=== PATIENT | female | born 1990 | race Caucasian/White ===

== ENCOUNTER 2020-05-16 10:59 | Emergency (ER) | payer BC, SELFPAY ==
[2020-05-16 12:01] LABS: Absolute Lymphocytes (CBC) 1.8 K/uL (0.7-4.9); Basophils % 0.6 % (0-1.3); Hematocrit 38.5 % (36.0-45.0); Lymphocytes % 30.2 % (15.3-44.8); MPV 8.8 fL (7.6-11.3); RBC Red Blood Cell Count 4.15 M/uL (3.86-4.86)
[2020-05-16 12:33] LABS: Urine Blood TRACE (NEG); Urine Glucose NEGATIVE (NEG); Urine Protein NEGATIVE (NEG); Urine pH 7.5 (5.0-7.0)
[2020-05-16 12:50] LABS: BUN Blood Urea Nitrogen 7 mg/dL (7-18); Bicarbonate 28 mmol/L (21-32); Glucose Level 104 mg/dL (74-106); HCG, Quantitative 41061 mIU/mL (1-3); Potassium 3.6 mmol/L (3.5-5.1); Sodium Level 138 mmol/L (136-145)
--- NOTE | 2020-05-16 14:38 | RAD REPORT ---
EXAM DESCRIPTION: US - Transvaginal OB - 05/16/2020 1:39 pm CLINICAL HISTORY: r/o Ectopic, pelvic pain, COMPARISON: No comparisons TECHNIQUE: Endovaginal sonography performed. FINDINGS: Normal size uterus seen with no myometrial mass. A normal shaped gestational sac seen in t he fundal portion of the endometrial cavity. Yolk sac is identified. pole is also present with crown-rump length corresponding to 6 week 3 day age. Heart rate is 130 BPM. No hematoma, mass or othe r intrauterine abnormality. The left ovary is well visualized and shows no abnormality. Normal flow seen in the stroma. No left a dnexal mass seen. No blood or fluid in the cul de sac. Right ovary is not clearly visualized due to bowel. No right adnexal mass. No finding to suspect conc urrent ectopic . IMPRESSION: Single 6 week 3 day IUP with a heart rate of 130 BPM. Calculated KEILA is 01/06/2021. No intrauterine mass or hematoma. No adnexal mass is identified.
[2020-05-16] MEDS ORDERED: AZITHROMYCIN 250 MG TAB ONE (14:40)
[2020-05-16] MEDS ORDERED: WATER FOR INJ,STERILE 10 ML ONE (14:40)
[2020-05-16] MEDS ORDERED: CEFTRIAXONE 1000 MG/VIAL ONE (14:40)
--- NOTE | 2020-05-16 15:46 | ER ---
Nurse's Notes [facility] Name: Ni Blanco Age: 29 yrs Sex: Female : 1990 Arrival Date: 05/16/2020 Time: 11:04 Bed 18 Private MD: Diagnosis: Bacterial Vaginosis Presentation: 05/16 11:06 Chief complaint: Patient states: "I went to an ER May 05 and my HCG was about 1999 aa5 but they couldn't see anything in the uterus". Pt c/o RLQ pain, yellowish vaginal discharge, and "rotten smell to my vagina". Pt also reports vaginal bleeding only on May 14 and none since then. 11:06 Coronavirus screen: Client denies travel out of the [place] in the last 14 days. At this aa5 time, the client does not indicate any symptoms associated with coronavirus-19. Ebola Screen: Patient negative for fever greater than or equal to 101.5 degrees Fahrenheit, and additional compatible Ebola Virus Disease symptoms. Initial Sepsis Screen: Does the patient meet any 2 criteria? No. Patient's initial sepsis screen is negative. Does the patient have a suspected source of infection? No. Patient's initial sepsis screen is negative. Risk Assessment: Do you want to hurt yourself or someone else? Patient reports no desire to harm self or others. Onset of symptoms was May 2020. 11:06 Acuity: LATRICE 3 aa5 11:06 Method Of Arrival: Ambulatory aa5 Historical: - Allergies: 11:18 No Known Allergies; aa5 - PMHx: 11:18 None; aa5 - PSHx: 11:18 None; aa5 - Immunization history:: Adult Immunizations up to date. - Social history:: Smoking status: Patient denies any tobacco usage or history of. Screenin:04 Abuse screen: Denies threats or abuse. Nutritional screening: No deficits noted. Tuberculosis screening: No symptoms or risk factors identified. Fall Risk None identified. Assessment: 11:30 General: Appears in no apparent distress. Behavior is calm, cooperative, appropriate for age. Neuro: Level of Consciousness is awake, alert, obeys commands, Oriented to person, place, time, situation, Appropriate for age. Cardiovascular: Capillary refill < 3 seconds Patient's skin is warm and dry. Respiratory: Airway is patent Respiratory effort is even, unlabored, Respiratory pattern is regular, symmetrical. GI: Bowel sounds present X 4 quads. : Reports discharge, malodorous, yellow, vaginal bleeding that is on May 14, none since. 12:30 Reassessment: Patient and/or family updated on plan of care and expected duration. Pain ah level reassessed. Patient is alert, oriented x 3, equal unlabored respirations, skin warm/dry/pink. No needs voiced at this time. 14:05 Reassessment: Provider in to do pelvic exam. Pt tolerated well. 14:40 Reassessment: Pt given antibiotics. Tolerated well. 15:24 Reassessment: Patient and/or family updated on plan of care and expected duration. Pain ah level reassessed. Patient is alert, oriented x 3, equal unlabored respirations, skin warm/dry/pink. awaiting on lab results. No needs voiced at this time. Vital Signs: 11:06 BP 121 / 73; Pulse 98; Resp 18 S; Temp 98.7(O); Pulse Ox 100% on R/A; Weight 54.43 kg aa5 (R); Height 5 ft. 7 in. (170.18 cm) (R); Pain 2/10; 13:00 BP 112 / 60; Pulse 82; Resp 16; Pulse Ox 99% ; ah 11:06 Body Mass Index 18.79 (54.43 kg, 170.18 cm) aa5 ED Course: 11:04 Patient arrived in ED. ag5 11:04 Arm band placed on Patient placed in an exam room, on a stretcher. aa5 11:08 Donta Kulkarni PA is PHCP. jr8 11:08 Farhan Robb MD is Attending Physician. jr8 11:08 Annie Vasquez, RN is Primary Nurse. 11:18 Triage completed. aa5 13:04 Patient has correct armband on for positive identification. Bed in low position. Call light in reach. Side rails up X 1. Pulse ox on. NIBP on. 14:10 Wet Prep Sent. ks7 14:10 GC (GONORR/CHLAMYDIA) Probe Sent. ks7 16:30 No provider procedures requiring assistance completed. IV discontinued, intact, bleeding controlled, No redness/swelling at site. Pressure dressing applied. Administered Medications: 14:41 Drug: Rocephin (cefTRIAXone) 250 mg Route: IM; Site: left ventrogluteal; 16:29 Follow up: Response: No adverse reaction 14:41 Drug: Zithromax 1 grams Route: PO; 16:29 Follow up: Response: No adverse reaction Outcome: 15:46 Discharge ordered by MD. byrd 16:29 Discharged to home ambulatory. 16:29 Condition: good 16:29 Discharge instructions given to patient, Instructed on discharge instructions, follow up and referral plans. Demonstrated understanding of instructions, follow-up care, medications, Prescriptions given X 1. 16:35 Patient left the ED. Signatures: Sofía Bush, RN RN aa5 Donta Kulkarni PA PA jr8 Monica Connell Amy RN RN Paula Goodrich RN RN ks7
--- NOTE | 2020-05-16 15:46 | EDPHYS ---
Physician Documentation [facility] Name: Ni Blanco Age: 29 yrs Sex: Female : 1990 Arrival Date: 05/16/2020 Time: 11:04 Bed 18 Private MD: ED Physician Farhan Robb HPI: 05/16 12:09 This 29 yrs old Female presents to ER via Ambulatory with complaints of jr8 Vaginal Bleeding, + Preg <12wks. 12:09 The patient presents to the emergency department with vaginal bleeding, that is light. jr8 Associated signs and symptoms: Pertinent positives: abdominal pain. The patient has not experienced similar symptoms in the past. The patient has been recently seen by a physician:. 12:10 Patient stated that she took test end of last month and was . Started jr8 to bleed and have lower abdominal pain. Went to [facility] and was given RhoGAM and had US completed. Stated that she was 5 weeks gestation but no identifiable IUP present. Stated that a couple of days later had heavy bleeding and now has stopped. Stated that he now continues to have foul smelling discharge and pain. Historical: - Allergies: 11:18 No Known Allergies; aa5 - PMHx: 11:18 None; aa5 - PSHx: 11:18 None; aa5 - Immunization history:: Adult Immunizations up to date. - Social history:: Smoking status: Patient denies any tobacco usage or history of. ROS: 12:10 Eyes: Negative for injury, pain, redness, and discharge, ENT: Negative for injury, jr8 pain, and discharge, Neck: Negative for injury, pain, and swelling, Cardiovascular: Negative for chest pain, palpitations, and edema, Respiratory: Negative for shortness of breath, cough, wheezing, and pleuritic chest pain, Abdomen/GI: Negative for abdominal pain, nausea, vomiting, diarrhea, and constipation, Back: Negative for injury and pain, MS/Extremity: Negative for injury and deformity, Skin: Negative for injury, rash, and discoloration, Neuro: Negative for headache, weakness, numbness, tingling, and seizure. 12:10 : Positive for pelvic pain, vaginal discharge, menstrual abnormality, missed period. Exam: 12:10 Eyes: Pupils equal round and reactive to light, extra-ocular motions intact. Lids and jr8 lashes normal. Conjunctiva and sclera are non-icteric and not injected. Cornea within normal limits. Periorbital areas with no swelling, redness, or edema. ENT: Nares patent. No nasal discharge, no septal abnormalities noted. Tympanic membranes are normal and external auditory canals are clear. Oropharynx with no redness, swelling, or masses, exudates, or evidence of obstruction, uvula midline. Mucous membranes moist. Neck: Trachea midline, no thyromegaly or masses palpated, and no cervical lymphadenopathy. Supple, full range of motion without nuchal rigidity, or vertebral point tenderness. No Meningismus. Cardiovascular: Regular rate and rhythm with a normal S1 and S2. No gallops, murmurs, or rubs. Normal PMI, no JVD. No pulse deficits. Respiratory: Lungs have equal breath sounds bilaterally, clear to auscultation and percussion. No rales, rhonchi or wheezes noted. No increased work of breathing, no retractions or nasal flaring. Abdomen/GI: Soft, non-tender, with normal bowel sounds. No distension or tympany. No guarding or rebound. No evidence of tenderness throughout. Back: No spinal tenderness. No costovertebral tenderness. Full range of motion. Skin: Warm, dry with normal turgor. Normal color with no rashes, no lesions, and no evidence of cellulitis. MS/ Extremity: Pulses equal, no cyanosis. Neurovascular intact. Full, normal range of motion. Neuro: Awake and alert, GCS 15, oriented to person, place, time, and situation. Cranial nerves II-XII grossly intact. Motor strength 5/5 in all extremities. Sensory grossly intact. Cerebellar exam normal. Normal gait. 15:45 : Pelvic Exam: External exam: is normal, Speculum exam: no cervicitis, os that is jr8 closed, no tissue in cervix is seen, discharge, malodorous, white. Vital Signs: 11:06 BP 121 / 73; Pulse 98; Resp 18 S; Temp 98.7(O); Pulse Ox 100% on R/A; Weight 54.43 kg aa5 (R); Height 5 ft. 7 in. (170.18 cm) (R); Pain 2/10; 13:00 BP 112 / 60; Pulse 82; Resp 16; Pulse Ox 99% ; ah 11:06 Body Mass Index 18.79 (54.43 kg, 170.18 cm) aa5 MDM: 11:15 Patient medically screened. [facility] 15:45 Data reviewed: vital signs, nurses notes, lab test result(s), radiologic studies, [facility] ultrasound. Data interpreted: Pulse oximetry: on room air is 99 %. Interpretation: normal. Counseling: I had a detailed discussion with the patient and/or guardian regarding: the historical points, exam findings, and any diagnostic results supporting the discharge/admit diagnosis, lab results, radiology results, the need for outpatient follow up, an OB/Gyne specialist, to return to the emergency department if symptoms worsen or persist or if there are any questions or concerns that arise at home. 05/16 11:26 Order name: Quantitative Hcg [facility] 05/16 11:26 Order name: Basic Metabolic Panel [facility] 05/16 11:26 Order name: CBC with Diff [facility] 05/16 12:22 Order name: Urine Dipstick--Ancillary (enter results) 05/16 12:22 Order name: Urine --Ancillary (enter results) 05/16 12:24 Order name: CBC with Automated Diff; Complete Time: 13:05 [facility] 05/16 12:33 Order name: Urine --Ancillary; Complete Time: 13:05 [facility] 05/16 12:33 Order name: Urine Dipstick-Ancillary; Complete Time: 13:05 [facility] 05/16 12:51 Order name: Basic Metabolic Panel; Complete Time: 13:05 [facility] 05/16 12:51 Order name: HCG, Quantitative; Complete Time: 13:05 [facility] 05/16 13:05 Order name: US Transvaginal Ob [facility] 05/16 13:40 Order name: GC (GONORR/CHLAMYDIA) Probe [facility] 05/16 13:40 Order name: Wet Prep [facility] 05/16 15:17 Order name: Wet Prep; Complete Time: 15:33 [facility] 05/16 11:26 Order name: Urine Test (obtain specimen); Complete Time: 12:53 [facility] 05/16 11:26 Order name: IV Saline Lock; Complete Time: 12:05 [facility] 05/16 11:26 Order name: Labs collected and sent; Complete Time: 12:05 [facility] 05/16 11:26 Order name: NPO; Complete Time: 12:05 [facility] 05/16 11:26 Order name: Urine Dipstick-Ancillary (obtain specimen); Complete Time: 12:52 [facility] 05/16 14:38 Order name: ; Complete Time: 14:42 EDMS Administered Medications: 14:41 Drug: Rocephin (cefTRIAXone) 250 mg Route: IM; Site: left ventrogluteal; 16:29 Follow up: Response: No adverse reaction 14:41 Drug: Zithromax 1 grams Route: PO; 16:29 Follow up: Response: No adverse reaction Disposition: 16:41 Co-signature as Attending Physician, Farhan Robb MD. rn Disposition: 05/16/20 15:46 Discharged to Home. Impression: Bacterial Vaginosis . - Condition is Stable. - Discharge Instructions: Bacterial Vaginosis. - Prescriptions for Flagyl 500 mg Oral Tablet - take 1 tablet by ORAL route every 12 hours for 7 days; 14 tablet. - Medication Reconciliation Form, Thank You Letter, Antibiotic Education, Prescription Opioid Use form. - Follow up: Private Physician; When: 2 - 3 days; Reason: Recheck today's complaints, Continuance of care, Re-evaluation by your physician. - Problem is new. - Symptoms have improved. Signatures: Dispatcher [employer] EDMS Farhan Robb MD MD rn Calderon, Audri, RN RN aa5 Donta Kulkarni PA PA 8 Annie Vasquez RN RN Corrections: (The following items were deleted from the chart) 16:35 15:46 05/16/2020 15:46 Discharged to Home. Impression: Bacterial Vaginosis . Condition ah is Stable. Forms are Medication Reconciliation Form, Thank You Letter, Antibiotic Education, Prescription Opioid Use. Follow up: Private Physician; When: 2 - 3 days; Reason: Recheck today's complaints, Continuance of care, Re-evaluation by your physician. Problem is new. Symptoms have improved. jr8
[2020-05-16 16:42] VITALS: TEMP 98.7
[2020-05-16 16:43] VITALS: BP 112/60; O2SAT 99
== END 2020-05-16 16:35 | disposition home or self-care (01) ==
LOC: ER 10:59
DX: O23.591 Infection of other part of genital tract in pregnancy, first trimester (principal); Z3A.01 Less than 8 weeks gestation of pregnancy
CPT/HCPCS: 36415; 76817; 80048; 81003; 81025; 84702; 85025; 87210; 87490; 87590; 96372; 99284

== ENCOUNTER 2023-03-26 16:48 | Emergency (ER) | payer OTHER ==
--- OUTSIDE RECORDS SUMMARY | 2023-03-26 16:52 | XMS REPORT | Continuity of Care Document ---
:1990 Author Organization [facility] t Address [address] [place] [address] Care Team Providers Name Role Phone Pcp, Patient Does Not Have A Primary Care Physician [phone] Maribeth Kelly MA Attending Clinician Unavailable Felicita Sloares Attending Clinician [phone] FELICITA WOODARD Attending Clinician Unavailable Provider, Crista Temnick Attending Clinician Unavailable Alysha Jones PA-C Attending Clinician Lilo Burnett Attending Clinician LILO MOHAN Attending Clinician Unavailable Lab, Crista Attending Clinician Unavailable Maurice Cardona Attending Clinician MAURICE GONZALEZ Attending Clinician Unavailable Doctor Unassigned, [place] Attending Clinician Unavailable ALYSHA JONES Attending Clinician Unavailable VINCENT HOWE Attending Clinician Unavailable Lew Trevizo MD Attending Clinician LEW TREVIZO Attending Clinician Unavailable Nurse, [facility] Attending Clinician Unavailable Vito Espinal DO Attending Clinician Kristal Rodriguez RN Attending Clinician Unavailable 2, [facility] Lab Attending Clinician Unavailable Ultrasound, Dayne Attending Clinician Unavailable Zuri Matias MD, Melendez Attending Clinician [phone] Ta PARISH, Laci Hopkins Attending Clinician Lori Enrique Us Room Attending Clinician Unavailable Lili Cook MD Attending Clinician Lab/Pedi, TashiRmchp Attending Clinician Unavailable Venkatesh Baker DO Attending Clinician Destiny Bond Attending Clinician DESTINY MORSE Attending Clinician Unavailable LEW TREVIZO Admitting Clinician Unavailable Lew Trevizo MD Admitting Clinician Payers Payer Name Policy Type Policy Number Effective Date Expiration Date Aaron soto [facility] [id number] 2020 CHOICE MEDICAID 00:00:00 MEDICAID PENDING PENDING 2020 00:00:00 Problems Condition Condition Condition Status Onset Resolution Last Treating Co mments Source Name Details Category Date Date Treatment Clinician Date Well woman Well woman Disease Active U nivers exam exam 5-04 ity of 00:00: [place] 00 Medical Branch Other Other Disease Active Univers depression depression 5-04 it y of 00:00: [place] 00 Medical Branch Elevated Elevated Disease Active Unive rs blood blood 5-04 ity of pressure pressure 00:00: [place] reading reading 00 Medical without without Branch diagnosis diagnosis of of hypertensi hypertensi on on IUD IUD Disease Active Univers (intrauter (intrauter 1-25 it y of ine ine 00:00: [place] device) in device) in [address] Branch Other Other Disease Active Univers general general 4-21 [place] of counseling [place] and advice 00 Me dical for for Branch contracept contracept trevor trevor management management Multiparit Multiparit Disease Active U nivers y y 8-11 ity of 00:00: [place] 00 Medical Branch Allergies, Adverse Reactions, Alerts Allergy Allergy Status Severity Reaction(s) Onset Inactive Treating Comm ents Source Name Type Date Date Clinician Adhesive Propensi Active Rash Univer s ty to 1-06 ity of adverse 00:00: [place] reaction 00 [facility] ADHESIVE Drug Active Rash 2018-0 Univers Class 1-06 ity of 00:00: [place] [facility] Adhesive Propensi Active Rash 2018- Univer s ty to -06 ity of adverse 00:00: [place] reaction [facility] Social History Social Habit Start Date Stop Date Quantity Comments Source History of tobacco 2020-03-20 Cigarette Smoker University of use 00:00:00 [facility] Alcohol intake 2022-04-21 2022-04-21 Current University of 00:00:00 00:00:00 non-drinker of [facility] alcohol Branch (finding) Exposure to 2022-04-10 2022-04-20 Not sure University SARS-CoV-2 (event) 00:00:00 15:51:00 [facility] Cigarettes smoked 2022-04-20 2022-04-20 Univers ity of current (pack per 00:00:00 00:00:00 [facility] ) - Reported Branch Cigarette 2022-04-20 2022-04-20 University of pack-years 00:00:00 00:00:00 [facility] Tobacco use and 2022-04-20 2022-04-20 Smokeless Universit y of exposure 00:00:00 00:00:00 tobacco non-user [facility] Sex Assigned At [birth year] Universit y of 00:00:00 00:00:00 [facility] Smoking Status Start Date Stop Date Source Ex-smoker 2022-04-20 00:00:00 2022-04-20 00:00:00 Universi ty of [facility] Medications Ordered Filled Start Stop Current Ordering Indication Dosage Frequency Signature Comments Components Source Medication Medication Date Date Medication? Clinician (SIG) Name Name No known No No known Unive rs medications 04-21 medication it y of 10:35: s [address] No known No No known Unive rs medications 04-21 medication it y of 10:35: s [address] No known No No known Unive rs medications 04-21 medication it y of 10:35: s [address] metroNIDAZO 2021- No [id number] 500mg Take 1 Univers LE 500 mg 04-21 tablet by ity of tablet 00:00: 04:59 mouth [place] 00 :00 every 12 Medical (twelve) Branch hours for 7 days. metroNIDAZO 2021- No [id number] 500mg Take 1 Univers LE 500 mg 02-11 tablet by ity of tablet 00:00: 00:00 mouth 2 [place] 00 :00 (two) Medical times Branch daily. SERTraline 2021- No [id number] 25mg Take 1 Univers (ZOLOFT) 25 03-10 tablet by it y of mg tablet 00:00: 00:00 mouth [place] 00 :00 daily. [facility] Branch Immunizations Ordered Filled Immunization Date Status Comments [facility] e Immunization Name Name Rho (d) Immune 2020-12-25 Completed University of Globulin 00:00:00 [facility] Rho (d) Immune 2020-12-25 Completed University of Globulin 00:00:00 [facility] Rho (d) Immune 2020-12-25 Completed University of Globulin 00:00:00 [facility] Rho (d) Immune 2020-12-25 Completed University of Globulin 00:00:00 [facility] Rho (d) Immune 2020-12-25 Completed University of Globulin 00:00:00 [facility] Rho (d) Immune 2020-12-25 Completed University of Globulin 00:00:00 [facility] Rho (d) Immune 2020-10-08 Completed University of Globulin 00:00:00 [facility] TDAP 2020-10-08 Completed University of 00:00:00 [facility] Rho (d) Immune 2020-10-08 Completed University of Globulin 00:00:00 [facility] TDAP 2020-10-08 Completed University of 00:00:00 [facility] Rho (d) Immune 2020-10-08 Completed University of Globulin 00:00:00 [facility] TDAP 2020-10-08 Completed University of 00:00:00 [facility] Rho (d) Immune 2020-10-08 Completed University of Globulin 00:00:00 [facility] TDAP 2020-10-08 Completed University of 00:00:00 [facility] Rho (d) Immune 2020-10-08 Completed University of Globulin 00:00:00 [facility] TDAP 2020-10-08 Completed University of 00:00:00 [place] [facility] Rho (d) Immune 2020-10-08 Completed University of Globulin 00:00:00 [facility] TDAP 2020-10-08 Completed University of 00:00:00 [facility] Influenza Virus 2020-09-10 Completed Universit y of Vaccine Quad .5 mL 00:00:00 [place] [facility] 6+ MO Branch Influenza Virus 2020-09-10 Completed Universit y of Vaccine [place] .5 mL 00:00:00 [place] [facility] 6+ MO Branch Influenza Virus 2020-09-10 Completed Universit y of Vaccine [place] .5 mL 00:00:00 [place] [facility] 6+ MO Branch Influenza Virus 2020-09-10 Completed Universit y of Vaccine [place] .5 mL 00:00:00 [place] [facility] 6+ MO Branch Influenza Virus 2020-09-10 Completed Universit y of Vaccine [place] .5 mL 00:00:00 [facility] IM 6+ MO Branch Influenza Virus 2020-09-10 Completed Universit y of Vaccine Quad .5 mL 00:00:00 [facility] 6+ MO Branch Rho (d) Immune 2020-05-05 Completed University of Globulin 00:00:00 [facility] Rho (d) Immune 2020-05-05 Completed University of Globulin 00:00:00 [facility] Rho (d) Immune 2020-05-05 Completed University of Globulin 00:00:00 [facility] Rho (d) Immune 2020-05-05 Completed University of Globulin 00:00:00 [facility] Rho (d) Immune 2020-05-05 Completed University of Globulin 00:00:00 [facility] Rho (d) Immune 2020-05-05 Completed University of Globulin 00:00:00 [facility] PPD (TB) 2015-11-06 Completed University of 00:00:00 [facility] PPD (TB) 2015-11-06 Completed University of 00:00:00 [facility] PPD (TB) 2015-11-06 Completed University of 00:00:00 [facility] PPD (TB) 2015-11-06 Completed University of 00:00:00 [facility] PPD (TB) 2015-11-06 Completed University of 00:00:00 [facility] PPD (TB) 2015-11-06 Completed University of 00:00:00 [facility] Td 2006-11-06 Completed University of 00:00:00 [facility] Td 2006-11-06 Completed University of 00:00:00 [facility] Td 2006-11-06 Completed University of 00:00:00 [facility] Td 2006-11-06 Completed University 00:00:00 [facility] Td 2006-11-06 Completed University 00:00:00 [facility] TD, NOS 2006-11-06 Completed University 00:00:00 [facility] Vital Signs Vital Name Observation Time Observation Value Comments Source Systolic blood 2022-04-20 20:52:00 111 mm[Hg] Univer sity of pressure [facility] Diastolic blood 2022-04-20 20:52:00 74 mm[Hg] Unive rsity of pressure [facility] Heart rate 2022-04-20 20:52:00 93 /min [facility] Body temperature 2022-04-20 20:52:00 36.78 Shruti [facility] Res[facility] rate 2022-04-20 20:52:00 16 /min [facility] Body height 2022-04-20 20:52:00 170.2 cm [facility] Body weight 2022-04-20 20:52:00 58.695 kg [facility] BMI 2022-04-20 20:52:00 20.27 kg/m2 [facility] Procedures This patient has no known procedures. Encounters Start End Encounter Admission Attending Care Care Encounter Source Date/Time Date/Time Type Type Clinicians Facility Department ID 2021-08-08 Outpatient P [facility] APRIL [id number] Univers 06:28:29 ity of [facility] 2021-08-06 Emergency [facility] [id number] Univers 09:16:09 ity of [facility] 2023-02-02 2023-02-02 Case KIMANI Kelly [id number] Univers 00:00:00 00:00:00 Management Maribeth ORDOÑEZ [id number] ity of [place] [id number] Maximilian red [phone] [place] [address] Branch 2022-05-20 2022-05-20 [facility] [id number] Univers 00:00:00 00:00:00 Felicita Bello MANAGER TECHNOLOGY [id number] ity of REGIONAL [id number] Govind as MATERNAL [phone] [facility] & CHILD [address] [place] [address] 2022-05-19 2022-05-19 Outpatient R RIVER [facility] [id number] Univers 14:30:00 14:30:00 FELICITA nehemiah paulino alexander [facility] 2022-05-19 2022-05-19 Outpatient R RIVER [facility] [id number] Univers 10:15:00 10:15:00 FELICITA nehemiah paulino alexander [facility] 2022-05-18 2022-05-18 Telephone Provider, [facility] [id number] Univers 00:00:00 00:00:00 JuanitaUnited Health Servicesnick MANAGER TECHNOLOGY [id number] ity [facility] [id number] Govind as MATERNAL [phone] [facility] & CHILD [address] [place] [address] 2022-05-04 2022-05-04 [facility] [id number] Univers 00:00:00 00:00:00 Alysha [place] [id number] i ty [facility] [id number] PROFESS[place] [phone] Hi dical [address] 2022-04-21 2022-04-21 Case Joes [facility] [id number] Univers 00:00:00 00:00:00 Management Lilo Nichole MANAGER TECHNOLOGY [id number] [facility] [id number] Govind as MATERNAL [phone] [facility] ical & CHILD [address] [facility] 2022-04-20 2022-04-20 Outpatient R LILO MOHAN [facility] [id number] Univers 15:00:00 16:30:02 [facility] 2022-04-20 2022-04-20 Office Provider, Crista [facility] 1 .[id number] Univers 15:00:00 16:30:02 Visit Lilo Mohan MANAGER TECHNOLOGY [id number] ity of REGIONAL [id number] Govind as MATERNAL [phone] [facility] & CHILD [address] [place] [address] 2022-03-02 2022-03-02 Outpatient R AKINSIPE, [facility] [id number] Univers 15:00:00 15:00:00 FELICITA ity o f [facility] 2022-03-02 2022-03-02 Outpatient R AKINSIPE, [facility] [id number] Univers 15:00:00 15:00:00 FELICITA ity o f [facility] 2022-03-02 2022-03-02 Outpatient R AKINSIPE, [facility] [id number] Univers 15:00:00 15:00:00 FELICITA ity o [facility] 2022-02-11 2022-02-11 [facility] 1.2.840.114 [id number] Univers 00:00:00 00:00:00 Felicita C MANAGER TECHNOLOGY [id number] ity of [facility] [id number] Govind as MATERNAL [phone] [facility] CHILD [address] [place] [address] 2022-02-09 2022-02-09 Office [facility] [id number] Univers 09:30:00 10:12:31 Visit Felicita C MANAGER TECHNOLOGY [id number] ity of [facility] [id number] Govind as MATERNAL [phone] [facility] CHILD [address] [place] [address] 2022-02-09 2022-02-09 Outpatient R AKINSIPE, [facility] [id number] Univers 09:30:00 10:12:31 FELICITA ity o [facility] 2022-02-09 2022-02-09 Outpatient R AKINSIPE, [facility] [id number] Univers 09:30:00 09:30:00 FELICITA ity o f [facility] 2022-02-09 2022-02-09 Outpatient R AKINSIPE, [facility] [id number] Univers 09:30:00 09:30:00 FELICITA ity o f [facility] 2022-02-08 2022-02-08 Telephone [facility] 1.2.840.114 [id number] Univers 00:00:00 00:00:00 Felicita Bello MANAGER TECHNOLOGY [id number] ity of [facility] [id number] Govind as MATERNAL [phone] [facility] CHILD [address] [place] [address] 2022-02-03 2022-02-03 Private Investigator Surveillance Lab, [facility] 1.2.840. 114 [id number] Univers 13:30:00 13:45:00 Visit Maurice Gonzalez MANAGER TECHNOLOGY [id number] ity of [facility] [id number] Govind as MATERNAL [phone] [facility] & CHILD [address] [place] [address] 2022-02-03 2022-02-03 [facility] [id number] Univers 13:30:00 13:30:00 MAURICE cerna o alexander [facility] 2022-02-03 2022-02-03 Telephone [facility] 1.2.840.114 [id number] Univers 00:00:00 00:00:00 Felicita Bello MANAGER TECHNOLOGY 350.1.13.10 ity of [facility] 4.2.7.2.686 Govind as MATERNAL [phone] [facility] & CHILD [address] [place] [address] 2022-02-01 2022-02-01 [facility] [id number] Univers 08:00:00 08:15:56 MAURICE cerna o alexander [facility] 2022-02-01 2022-02-01 Office [facility] 1.2.840.114 [id number] Univers 08:00:00 08:15:56 Visit Maurice Aldana MANAGER TECHNOLOGY [id number] ity of [facility] [id number] Govind as MATERNAL [phone] [facility] CHILD [address] [place] [address] 2022-02-01 2022-02-01 Orders Doctor CARRILLO 1.2.840.114 [id number] Univers 00:00:00 00:00:00 Only Unassigned, NICO 350.1.13.10 ity of [place] [facility] 4.2.7.2.686 Govind as [phone] [address] 2022-01-28 2022-01-28 Telephone [facility] 1.2.840.114 [id number] Univers 00:00:00 00:00:00 Felicita C MANAGER TECHNOLOGY 350.1.13.10 ity of [facility] [id number] Govind as MATERNAL [phone] [facility] & CHILD [address] [place] [address] 2021-11-04 2021-11-04 Outpatient R ROBERT [facility] [id number] Univers 16:00:00 16:00:00 ALYSHA [facility] 2021-11-03 2021-11-03 Telephone [facility] 1.2.840.114 [id number] Univers 00:00:00 00:00:00 Felicita C MANAGER TECHNOLOGY 350.1.13.10 ity of [facility] 4.2.7.2.686 Govind as MATERNAL [phone] [facility] CHILD [address] [place] [address] 2021-11-03 2021-11-03 Telephone [facility] 1.2.840.114 [id number] Univers 00:00:00 00:00:00 Felicita C MANAGER TECHNOLOGY 350.1.13.10 ity of [facility] [id number] Govind as MATERNAL [phone] [address] 2021-11-02 2021-11-02 Office [facility] [id number] Univers 14:15:00 14:30:00 Visit Felicita C MANAGER TECHNOLOGY 350.1.13.10 ity of [facility] 4.2.7.2.686 Govind as MATERNAL [phone] [address] 2021-11-02 2021-11-02 Outpatient R RIVER [facility] [id number] Univers 14:15:00 14:15:00 FELICITA cerna o f [facility] 2021-07-22 2021-07-22 Outpatient R ROBERT [facility] [id number] Univers 13:00:00 13:00:00 ALYSHA [facility] 2021-03-31 2021-03-31 Outpatient R SHYAM [facility] [id number] Univers 09:00:00 09:00:00 VINCENT [facility] 2021-03-10 2021-03-10 Outpatient R ROBERT [facility] [id number] Univers 13:15:00 13:15:00 ALYSHA [facility] 2021-03-10 2021-03-10 Telemedicsalome [facility] 1.2.840.114 [id number] Univers 09:34:52 10:04:52 ne Visit Alysha Marcus 350.1.13.10 ity of [place].2.[place] Profess[place] [phone] Hi dic[address] 2021-02-24 2021-02-24 Office Lew Trevizo [facility] [id number] Univers 09:07:01 09:43:41 Visit Naveen Marcus 350.1.13.10 i ty of [place]2.7.2.[place] Profess[place] [phone] [address] 2021-02-24 2021-02-24 Outpatient R LEW TREVIZO [facility] [id number] Univers 09:30:00 09:30:00 [facility] 2021-02-11 2021-02-11 Outpatient R ROBERT [facility] [id number] Univers 15:45:00 15:45:00 ALYSHA [facility] 2021-02-10 2021-02-10 Outpatient R ROBERT [facility] [id number] Univers 16:00:00 16:00:00 ALYSHA [facility] 2021-02-10 2021-02-10 [facility]tiaz [facility] 1.2.840.114 [id number] Univers 15:12:21 15:39:53 ne Visit Alysha Marcus 350.1.13.10 ity of [place] 4[place]2.7.2.[place] [phone] Hi dical [address] 2021-02-10 2021-02-10 Telephone Lew Trevizo [facility] 1.2.840.114 [id number] Univers 00:00:00 00:00:00 Naveen Marcus 350.1.13.10 i ty of [place] 4[place].2.[place] [phone] Hi dical [address] 2021-01-27 2021-01-27 Office Lew Trevizo [facility] [id number] Univers 09:00:09 09:46:10 Visit Naveen Marcus 350.1.13.10 i ty of [place] 4[place]2.7.2.686 [place] [phone] Hi dic[address] 2021-01-27 2021-01-27 Outpatient R LEW TREVIZO [facility] [id number] Univers 09:00:00 09:00:00 ity of [facility] 2021-01-27 2021-01-27 Orders Doctor LORENA 1.2.840.114 [id number] Univers 00:00:00 00:00:00 Only Unassigned, NICO 350.1.13.10 ity of [place] [facility] 4.2.7.2.686 Govind as [phone] [address] 2021-01-20 2021-01-20 Routine Robert [facility] [id number] Univers 10:00:23 10:15:23 Alysha Marcus 350.1.13.10 ity of [place] 4[place].2.[place] [phone] [address] 2021-01-20 2021-01-20 Outpatient R ROBERT [facility] [id number] Univers 09:45:00 09:45:00 ALYSHA [facility] 2020-12-30 2020-12-30 Nurse Nurse, [facility] 1.2.840.114 [id number] Univers 09:59:08 10:15:49 Visit Lew Trevizo 350.1.13.10 ity [place]2.[place] [phone] [facility] [address] [facility] 2020-12-30 2020-12-30 Outpatient R LEW TREVIZO [facility] [id number] Univers 10:00:00 10:00:00 ity of [facility] 2020-12-29 2020-12-29 Patient Teddy [facility] 1.2.840.114 [id number] Univers 00:00:00 00:00:00 Outreach Vito PRIMARY 350.1.13.10 i ty of [facility] 4.2.7.2.686 [place] [id number] [facility] [address] 2020-12-22 2020-12-27 Hospital Lew Trevizo [facility] 1.2.840.114 [id number] Univers 16:53:00 10:20:00 Encounter Naveen Marcus 350.1.13.10 ity of [place].2.686 [place] [phone] [facility] [address] 2020-12-22 2020-12-22 Routine Pierre [facility] [id number] Univers 15:59:10 17:30:07 Naveen [place] 350.1.13.10 ity of [place] 4[place].2.[place] [phone] Hi dicpa nal [address] [facility] 2020-12-22 2020-12-22 Outpatient R LEW TREVIZO [facility] [id number] Univers 16:00:00 16:00:00 ity of [facility] 2020-12-21 2020-12-21 Telephone Pierre [facility] 1.2.840.114 [id number] Univers 00:00:00 00:00:00 Cam Amrit 350.1.13.10 i ty [place] 4[place]2.7.2.[place] [phone] Hi dicpa nal [address] [facility] 2020-12-19 2020-12-19 Nurse LORENA Rodriguez 1.2.840.114 [id number] [facility] Univers 00:00:00 00:00:00 Triage Kristal BRANY 350.1.13.10 it y of [facility] 4.2.7.2.686 Govind as [phone] [address] 2020-12-15 2020-12-15 Routine Lew Trevizo [facility] [id number] Univers 14:44:49 15:28:42 Naveen Marcus 350.1.13.10 ity of [place] 4.2.7.2.[place] [phone] Hi dical nal [address] [facility] 2020-12-15 2020-12-15 Outpatient R LEW TREVIZO [facility] [id number] Univers 14:45:00 14:45:00 ity of [facility] 2020-12-09 2020-12-09 Routine Alysha Jones [facility] 1.2.840.11 [id number] Univers 15:41:25 16:27:33 Lew Trevizo Naveen Marcus 350.1.13.10 ity of [place] [phone] Hi dical nal [address] [place] [address] 2020-12-09 2020-12-09 Outpatient R LEW TREVIZO [facility] [id number] Univers 15:45:00 15:45:00 ity of [facility] 2020-12-01 2020-12-01 Private Investigator Surveillance 2, [facility] Lab [facility] 1.2.840.114 [id number] Univers 12:11:58 12:26:58 Visit Alysha Jones 350.1.13.10 [place] [phone] Hi dical nal 353 [facility] 2020-12-01 2020-12-01 Routine Robert [facility] 1.2.524.264 [id number] Univers 11:09:00 11:55:27 Alysha Marcus 350.1.13.10 it[place] [phone] Hi dical nal 134 [facility] 2020-12-01 2020-12-01 Outpatient R ROBERT [facility] [id number] Univers 11:15:00 11:15:00 ALYSHA [facility] 2020-12-01 2020-12-01 Orders Doctor LORENA 1.2.840.114 [id number] Univers 00:00:00 00:00:00 Only Unassigned, NICO 350.1.13.10 ity of [place] [facility] 4.2.7.2.686 Govind as [phone] [address] 2020-11-17 2020-11-17 Outpatient R LEW TREVIZO [facility] [id number] Univers 09:45:00 09:45:00 ity of [facility] 2020-11-11 2020-11-11 Abstract River [facility] 1.2.840.114 [id number] Univers 00:00:00 00:00:00 Felicita Bello MANAGER TECHNOLOGY 350.1.13.10 ity of [facility] 4.2.7.2.686 Govind as MATERNAL [phone] Med ical & CHILD 107 [facility] 2020-11-10 2020-11-10 Private Investigator Surveillance Ultrasound, [facility] 1.2 .840.114 [id number] Univers 12:57:27 13:27:27 Visit Nora Julian MANAGER TECHNOLOGY 350.1. 13.10 ity of [facility] 4.2.7.2.686 Govind as MATERNAL [phone] Med ical & CHILD 369 [facility] 2020-11-10 2020-11-10 Outpatient P [facility] [id number] Univers 13:00:00 13:00:00 ity of [facility] 2020-11-05 2020-11-05 Routine Robert [facility] 1.2.839.625 [id number] Univers 11:04:11 11:19:11 Alysha [place] 350.1.13.10 ity of [place] [phone] Hi dical nal 134 [facility] 2020-11-05 2020-11-05 [facility] [id number] Univers 11:15:00 11:15:00 ALYSHA [facility] 2020-10-30 2020-10-30 Private Investigator Surveillance 2, Adc Lab [facility] 1.2.840.114 [id number] Univers 08:38:19 08:53:19 Visit TishRuben moralespop Marcus 350.1.13 .10 it[place] of [place] [phone] Hi dical nal 353 [facility] 2020-10-30 2020-10-30 Outpatient R [facility] [id number] Univers 08:30:00 08:30:00 FELICITA ity o f [facility] 2020-10-22 2020-10-22 Routine Trevizo [facility] 1.2.081.503 [id number] Univers 12:55:10 13:35:14 Cam Amrit 350.1.13.10 ity of [place] [phone] Hi dical [address] 2020-10-22 2020-10-22 Outpatient R LEW TREVIZO [facility] [id number] Univers 13:00:00 13:00:00 [facility] 2020-10-08 2020-10-08 [facility] 1.2.146.367 [id number] Univers 13:24:07 14:15:33 Alysha Marcus 350.1.13.10 ity of [place] [phone] Hi dic[address] 2020-10-08 2020-10-08 [facility] [id number] Univers 13:30:00 13:30:00 ALYSHA [facility] 2020-10-06 2020-10-06 Private Investigator Surveillance 2, Adc Lab [facility] 1.2.840.114 [id number] Univers 13:06:24 13:21:24 Visit Alysha Jones 350.1.13.10 ity of [place] [phone] Hi dical nal 353 [facility] 2020-10-06 2020-10-06 Outpatient R [facility] [id number] Univers 13:00:00 13:00:00 ity of [facility] 2020-10-06 2020-10-06 Telephone [facility] 1.2.840.114 [id number] Univers 00:00:00 00:00:00 Felicita C MANAGER TECHNOLOGY 350.1.13.10 ity of REGIONAL 4.2.7.2.686 Govind as MATERNAL [phone] Med ical & CHILD [address] [place] [address] 2020-09-29 2020-09-29 Outpatient [facility] [id number] Univers 13:15:00 13:15:00 FELICITA ity o f [facility] 2020-09-17 2020-09-17 Telephone Pierre [facility] 1.2.840.114 [id number] Univers 00:00:00 00:00:00 Cam [place] 350.1.13.10 i ty of [place] [phone] Hi dical nal 134 [facility] 2020-09-10 2020-09-10 Initial Pierre [facility] 1.2.997.727 [id number] Univers 09:47:46 11:32:34 Cam [place] 350.1.13.10 ity of [place]2.[place] [phone] Hi dical nal 134 [facility] 2020-09-10 2020-09-10 Outpatient R TREVIZOLEW [facility] [id number] Univers 10:00:00 10:00:00 ity of [facility] 2020-09-01 2020-09-01 Routine [facility] [id number] Univers 14:04:31 14:47:06 Felicita C MANAGER TECHNOLOGY 350.1.13.10 ity of Visit [facility] 4.2.7.2.686 Govind as MATERNAL [phone] [facility] & CHILD [address] [place] [address] 2020-09-01 2020-09-01 Outpatient R AKINRENATO, [facility] [id number] Univers 14:00:00 14:00:00 FELICITA ity o f [facility] 2020-08-18 2020-08-18 Private Investigator Surveillance Ultrasound, Dayne [facility] 1.2 .840.114 [id number] Univers 12:55:14 13:55:14 Visit Laci Chappell MANAGER TECHNOLOGY 350.1.13.10 ity of REGIONAL 4.2.7.2.686 [place] as MATERNAL [phone] [facility] ical & CHILD [address] [place] [address] 2020-08-18 2020-08-18 Outpatient P [facility] [id number] Univers 13:00:00 13:00:00 ity of [facility] 2020-08-18 2020-08-18 [facility] 1.2.840.114 [id number] Univers 00:00:00 00:00:00 Felicita C MANAGER TECHNOLOGY 350.1.13.10 ity of REGIONAL 4.2.7.2.686 Govind as MATERNAL [phone] [facility] ical & CHILD [address] [place] [address] 2020-08-04 2020-08-04 Routine Akinsipe, [facility] 1.2.681.642 [id number] Univers 15:09:07 15:54:03 Felicita C MANAGER TECHNOLOGY 350.1.13.10 ity of Visit [place]IONAL 4.2.7.2.686 Govind as MATERNAL [phone] [facility] & CHILD [address] [place] [address] 2020-08-04 2020-08-04 Outpatient R AKINROSSANAPE, [facility] [id number] Univers 15:15:00 15:15:00 FELICITA ity o f [facility] 2020-07-15 2020-07-15 Outpatient R AKINSIPE, [facility] [id number] Univers 11:00:00 11:00:00 FELICITA ity o f [facility] 2020-07-14 2020-07-14 Routine Akinsipe, [facility] [id number] Univers 15:51:29 16:22:26 Felicita C MANAGER TECHNOLOGY 350.1.13.10 ity of Visit [place]IONAL 4.2.7.2.686 Govind as MATERNAL [phone] Med ical & CHILD 107 [facility] 2020-07-14 2020-07-14 Outpatient R AKINSIPE, [facility] [id number] Univers 16:00:00 16:00:00 FELICITA nehemiah lora hopkins [facility] 2020-07-14 2020-07-14 Outpatient R AKINSIPE, [facility] [id number] Univers 14:00:00 14:00:00 FELICITA cerna o f [facility] 2020-06-23 2020-06-23 [facility] 1.2.840.114 [id number] Univers 00:00:00 00:00:00 Felicita C MANAGER TECHNOLOGY 350.1.13.10 ity of [facility] 4.2.7.2.686 Govind as MATERNAL [phone] Med ical & CHILD [address] [place] [address] 2020-06-22 2020-06-22 Private Investigator Surveillance [facility] Room [facility] 1.2. 840.114 [id number] Univers 10:09:58 10:54:58 Visit Lili Cook MANAGER TECHNOLOGY 350.1.13.10 ity of REGIONAL 4.2.7.2.686 Govind as MATERNAL [phone] Med ical & CHILD 369 [facility] 2020-06-22 2020-06-22 Private Investigator Surveillance [facility] 1.2 .840.114 [id number] Univers 10:47:30 10:47:50 Visit Lili Cook MANAGER TECHNOLOGY 350.1.13.10 ity of REGIONAL 4.2.7.2.686 Govind as MATERNAL [phone] [facility] ical & CHILD 125 [facility] 2020-06-22 2020-06-22 Outpatient P [facility] [id number] Univers 10:00:00 10:00:00 ity of [facility] 2020-06-16 2020-06-16 Routine [facility] 1.2.816.597 [id number] Univers 12:46:05 13:28:32 Felicita C MANAGER TECHNOLOGY 350.1.13.10 ity of Visit REGIONAL 4.2.7.2.686 Govind as MATERNAL [phone] Med ical & CHILD [address] [place] [address] 2020-06-16 2020-06-16 Outpatient R AKINSIPE, [facility] [id number] Univers 12:45:00 12:45:00 FELICITA ity o f [facility] 2020-06-16 2020-06-16 Outpatient R AKINSIPE, [facility] [id number] Univers 12:45:00 12:45:00 FELICITA ity o f [facility] 2020-05-28 2020-05-28 Telephone [facility] 1.2.840.114 [id number] Univers 00:00:00 00:00:00 Felicita C MANAGER TECHNOLOGY 350.1.13.10 ity of REGIONAL 4.2.7.2.686 Govind as MATERNAL [phone] [facility] & [address] 2020-05-19 2020-05-26 Initial [facility] 1.2.914.999 [id number] Univers 08:35:51 08:20:14 Felicita C MANAGER TECHNOLOGY 350.1.13.10 ity of Visit REGIONAL 4.2.7.2.686 Govnid as MATERNAL [phone] [facility] & CHILD [address] [place] [address] 2020-05-19 2020-05-19 Outpatient R AKINSIPE, [facility] [id number] Univers 08:00:00 08:00:00 FELICITA ity o f [facility] 2020-05-19 2020-05-19 Orders Doctor LORENA 1.2.840.114 [id number] Univers 00:00:00 00:00:00 Only Unassigned, NICO 350.1.13.10 ity of [place] [facility] 4.2.7.2.686 Govind as [phone] [address] 2020-05-15 2020-05-15 Telephone [facility] 1.2.840.114 [id number] Univers 00:00:00 00:00:00 Felicita C MANAGER TECHNOLOGY 350.1.13.10 ity of REGIONAL 4.2.7.2.686 Govind as MATERNAL [phone] [facility] & CHILD [address] [place] [address] 2020-05-05 2020-05-05 Emergency [facility] 1.2.046.782 [id number] Univers 10:46:02 15:12:00 Venkatesh Marcus 350.1.13.10 i ty [facility] 4.2.7.2.686 [place] [facility] [phone] [facility] [address] [place] 2020-04-30 2020-04-30 Outpatient R LISA [facility] [id number] Univers 09:00:00 09:00:00 MAURICE hopkins [facility] 2020-03-31 2020-03-31 Orders Doctor LORENA 1.2.840.114 [id number] Univers 00:00:00 00:00:00 Only Unassigned, NICO 350.1.13.10 ity of [place] [facility] 4.2.7.2.686 Govidn as [phone] [address] 2020-03-26 2020-03-26 Orders Doctor CARRILLO 1.2.840.114 [id number] Univers 00:00:00 00:00:00 Only Unassigned, NICO 350.1.13.10 ity of [place] [facility] 4.2.7.2.686 Govind as [phone] [address] 2020-03-20 2020-03-20 Office Provider, Crista Walsh [facility] 1 .2.840.114 [id number] Univers 14:20:05 14:56:27 Visit Destiny Morse MANAGER TECHNOLOGY 350.1.13.10 ity of [facility] 4.2.7.2.686 Govind as MATERNAL [phone] Med ical & CHILD [address] [place] [address] 2020-03-20 2020-03-20 Outpatient R [facility] [id number] Univers 14:00:00 14:00:00 ity of [facility] 2020-03-20 2020-03-20 Outpatient R AVTAR [facility] [id number] Univers 14:00:00 14:00:00 DESTINY hopkins [facility] 2020-03-20 2020-03-20 Orders Doctor CARRILLO 1.2.840.114 [id number] Univers 00:00:00 00:00:00 Only Unassigned, NICO 350.1.13.10 ity of [place] [facility] 4.2.7.2.686 Govind as [phone] [address] 2020-03-13 2020-03-13 Telephone Provider, [facility] 1.2.840.114 [id number] Univers 00:00:00 00:00:00 [facility] MANAGER TECHNOLOGY 350.1.13.10 ity of [facility] 4.2.7.2.686 Govind as MATERNAL [phone] [facility] ical & CHILD [address] [place] [address] 2020-03-11 2020-03-11 Office [facility] 1 .2.840.114 [id number] Univers 14:27:49 14:57:49 Visit Destiny Morse MANAGER TECHNOLOGY 350.1.13.10 ity of [facility] 4.2.7.2.686 Govind as MATERNAL [phone] [facility] & CHILD [address] [place] [address] 2020-03-11 2020-03-11 Outpatient R AVTAR [facility] [id number] Univers 14:30:00 14:30:00 DESTINY hopkins [facility] 2020-03-11 2020-03-11 Orders Doctor LORENA 1.2.840.114 [id number] Univers 00:00:00 00:00:00 Only Unassigned, NICO 350.1.13.10 ity of [place] [facility] 4.2.7.2.686 Govind as [phone] [address] Results This patient has no known results.
--- NOTE | 2023-03-26 18:16 | RAD REPORT ---
EXAM DESCRIPTION: RAD - Ankle Left 3 View - 03/26/2023 5:54 pm CLINICAL HISTORY: PAIN COMPARISON: No comparisons TECHNIQUE: Left ankle, 3 views. FINDINGS: Mildly displaced fracture at the tip of the lateral malleolus. Overlying soft tissue swell ing. No dislocation or periosteal reaction. No joint effusion seen. No joint space narrowing. No othe r soft tissue abnormality. IMPRESSION: Mildly displaced fracture at the tip of the lateral malleolus.
--- NOTE | 2023-03-26 18:17 | RAD REPORT ---
EXAM DESCRIPTION: RAD - Foot Left 3 View - 03/26/2023 5:54 pm CLINICAL HISTORY: PAIN COMPARISON: No comparisons TECHNIQUE: Left foot, 3 views. FINDINGS: Mildly displaced fracture at the tip of the lateral malleolus. No dislocation or periostea l reaction. No air or foreign body in the soft tissues. Soft tissue swelling about the ankle IMPRESSION: Mildly displaced fracture at the tip of the lateral malleolus.
--- NOTE | 2023-03-26 18:26 | EDPHYS ---
Physician Documentation [facility] Name: Ni Obrien Age: 32 yrs Sex: Female : 1990 Arrival Date: 03/26/2023 Time: 16:48 Bed 12 Private MD: ED Physician Jennie Carbajal HPI: 03/26 17:11 This 32 yrs old Female presents to ER via Ambulatory with complaints of Ankle Injury, kb Foot Injury. 17:11 The patient presents with an injury, pain, swelling, tenderness. The complaints affect kb the left ankle. Onset: The symptoms/episode began/occurred 3 day(s) ago. Context: The problem was sustained outdoors, resulted from the patient falling, The patient can fully bear weight on the affected extremity. the patient is able to ambulate. Associated signs and symptoms: Pertinent positives: swelling. Modifying factors: The symptoms are alleviated by nothing, the symptoms are aggravated by weight bearing. Severity of symptoms: At their worst the symptoms were moderate, in the emergency department the symptoms are unchanged. The patient has not experienced similar symptoms in the past. The patient has not recently seen a physician. Pt reports she fell on her long board on Monday. Reports left ankle and foot pain, swelling and bruising that isn't getting any better. Historical: - Allergies: 16:57 No Known Allergies; vg1 - Immunization history:: Client reports receiving the 2nd dose of the Covid vaccine. - Social history:: Smoking status: Patient reports the use of cigarette tobacco products, smokes one-half pack cigarettes per day, Reported history of juuling and/or vaping. ROS: 17:11 Constitutional: Negative for fever, chills, and weight loss. kb 17:11 MS/extremity: Positive for decreased range of motion, ecchymosis, pain, swelling, tenderness. 17:11 All other systems are negative. Exam: 17:11 Constitutional: This is a well developed, well nourished patient who is awake, alert, kb and in no acute distress. Head/Face: Normocephalic, atraumatic. ENT: Moist Mucous membranes Cardiovascular: Regular rate and rhythm with a normal S1 and S2. No gallops, murmurs, or rubs. No pulse deficits. Respiratory: Respirations even and unlabored. No increased work of breathing. Talking in full sentences Abdomen/GI: Soft, non-tender. No distention Skin: Warm, dry with normal turgor. Normal color. Neuro: Awake and alert, GCS 15, oriented to person, place, time, and situation. Moves all extremities. Normal gait. 17:11 Musculoskeletal/extremity: Extremities: grossly normal except: noted in the left foot and left lateral ankle: ecchymosis, pain, swelling, tenderness, ROM: intact in all extremities, Circulation is intact in all extremities. Sensation intact. Weight bearing: able to fully bear weight. Vital Signs: 16:52 BP 135 / 90; Pulse 90; Resp 16; Temp 98.5(TE); Pulse Ox 100% ; Weight 68.04 kg; Height vg1 5 ft. 7 in. ; 16:52 Body Mass Index 23.49 (68.04 kg, 170.18 cm) vg1 MDM: 16:51 Patient medically screened. kb 17:13 Differential diagnosis: fracture, sprain. Data reviewed: Data reviewed: vital signs, kb nurses notes. 18:21 Independent interpretation of the following test(s) in the Emergency Department X-Ray: kb My interpretation is displaced fracture distal fibula. Counseling: I had a detailed discussion with the patient and/or guardian regarding: the historical points, exam findings, and any diagnostic results supporting the discharge/admit diagnosis, lab results, the need for outpatient follow up, a orthopedic surgeon, to return to the emergency department if symptoms worsen or persist or if there are any questions or concerns that arise at home. 03/26 16:54 Order name: Ankle Left 3 View XRAY; Complete Time: 18:17 kb 03/26 16:54 Order name: Foot Left 3 View XRAY; Complete Time: 18:18 kb 03/26 18:20 Order name: Crutches; Complete Time: 18:39 kb 03/26 18:20 Order name: Short Leg Splint; Complete Time: 18:39 kb Administered Medications: No medications were administered Disposition Summary: 03/26/23 18:26 Discharge Ordered Location: Home Condition: Stable kb Diagnosis - Displaced fracture of lateral malleolus of left fibula, initial encounter for kb closed fracture Followup: kb - With: Emergency Department - When: As needed - Reason: Worsening of condition Followup: kb - With: Private Physician - When: 2 - 3 days - Reason: Recheck today's complaints, Continuance of care, Re-evaluation by your physician Discharge Instructions: - Discharge Summary Sheet kb - Ankle Fracture kb Forms: - Medication Reconciliation Form kb - Thank You Letter kb - Antibiotic Education kb - Prescription Opioid Use kb - Work release form ss Prescriptions: - Diclofenac Sodium 75 mg Oral tablet,delayed release (DR/EC) - take 1 tablet by ORAL route 2 times per day As needed; 30 tablet; Refills: 0, kb Product Selection Permitted Signatures: Dispatcher [employer] Luana Weiner, SCHOOL OPERATIONS MANAGER-C SCHOOL OPERATIONS MANAGER-Suha Chu, RN RN vg1
--- NOTE | 2023-03-26 18:26 | ER ---
Nurse's Notes [facility] Name: Ni Obrien Age: 32 yrs Sex: Female : 1990 Arrival Date: 03/26/2023 Time: 16:48 Bed 12 Private MD: Diagnosis: Displaced fracture of lateral malleolus of left fibula, initial encounter for closed fracture Presentation: 03/26 16:52 Chief complaint: Patient states: was on a skate board Ciro night and slipped off and vg1 landed on Left ankle; appears to be swollen with bruising. Pt is in walking boot. Coronavirus screen: Vaccine status: Patient reports receiving the 2nd dose of the covid vaccine. Client denies travel out of the [place] in the last 14 days. Ebola Screen: Patient negative for fever greater than or equal to 101.5 degrees Fahrenheit, and additional compatible Ebola Virus Disease symptoms Patient denies exposure to infectious person. Patient denies travel to an Ebola-affected area in the 21 days before illness onset. Initial Sepsis Screen: Does the patient meet any 2 criteria? No. Patient's initial sepsis screen is negative. Does the patient have a suspected source of infection? No. Patient's initial sepsis screen is negative. Risk Assessment: Do you want to hurt yourself or someone else? Patient reports no desire to harm self or others. Onset of symptoms was March 24, 2023. 16:52 Method Of Arrival: Ambulatory vg1 16:52 Acuity: LATRICE 4 vg1 Triage Assessment: 16:57 General: Appears uncomfortable, Behavior is cooperative. Pain: Complains of pain in vg1 left lateral ankle Pain currently is 6 out of 10 on a pain scale. at worst was 10 out of 10 on a pain scale. Derm: Bruising that is dark purple, on left ankle. Musculoskeletal: Swelling present in left lateral malleolus and left medial malleolus. Historical: - Allergies: 16:57 No Known Allergies; vg1 - Immunization history:: Client reports receiving the 2nd dose of the Covid vaccine. - Social history:: Smoking status: Patient reports the use of cigarette tobacco products, smokes one-half pack cigarettes per day, Reported history of juuling and/or vaping. Screenin:43 [facility] ED Fall Risk Assessment (Adult) History of falling in the last 3 months, ss including since admission No falls in past 3 months (0 pts). Abuse screen: Denies threats or abuse. Denies injuries from another. Nutritional screening: No deficits noted. Tuberculosis screening: Never had TB. Assessment: 18:43 Reassessment: Patient appears in no apparent distress at this time. Neuro: Level of ss Consciousness is awake, alert, obeys commands, Oriented to person, place, time, situation. Cardiovascular: Capillary refill < 3 seconds is brisk in bilateral toes Patient's skin is warm and dry. Respiratory: Airway is patent Respiratory effort is even, unlabored. Vital Signs: 16:52 BP 135 / 90; Pulse 90; Resp 16; Temp 98.5(TE); Pulse Ox 100% ; Weight 68.04 kg; Height vg1 5 ft. 7 in. ; 16:52 Body Mass Index 23.49 (68.04 kg, 170.18 cm) vg1 ED Course: 16:50 Patient arrived in ED. mr 16:51 Luana Tavera FNP-C is [facility]. kb 16:51 Jennie Carbajal MD is Attending Physician. kb 16:57 Triage completed. vg1 16:57 Arm band placed on. vg1 17:56 Ankle Left 3 View XRAY In Process Unspecified. EDMS 17:56 Foot Left 3 View XRAY In Process Unspecified. EDMS 18:39 Crutch training done. Orthoglass splint: Posterior short lleg splint applied on left mm9 leg. 18:43 Patient has correct armband on for positive identification. ss 18:43 No provider procedures requiring assistance completed. Patient did not have IV access ss during this emergency room visit. Administered Medications: No medications were administered Medication: 18:43 VIS not applicable for this client. ss Outcome: 18:26 Discharge ordered by . kb 18:43 Discharged to home via wheelchair, with crutches. ss 18:43 Condition: good 18:43 Discharge instructions given to patient, Instructed on discharge instructions, follow up and referral plans. Demonstrated understanding of instructions, follow-up care. 18:46 Patient left the ED. ss Signatures: Dispatcher [employer] EDMS Luana Tavera FNP-C FNP-Ckb Rivertaye Myriam mr Summer Barrera RN RN ss Suha Ibarra RN RN vg1 Bev Elam mm9
[2023-03-26 19:11] VITALS: BP 135/90; TEMP 98.5; O2SAT 100
== END 2023-03-26 18:46 | disposition home or self-care (01) ==
LOC: ER 16:48
PROC: 2W3TX1Z Immobilization of Left Foot using Splint (ICD-10-PCS; principal; 2023-03-26)
DX: S82.62XA Displaced fracture of lateral malleolus of left fibula, initial encounter for closed fracture (principal)
CPT/HCPCS: 99283

== ENCOUNTER 2024-03-18 13:36 | Emergency (ER) | payer OTHER, SELFPAY ==
--- OUTSIDE RECORDS SUMMARY | 2024-03-18 13:41 | XMS REPORT | Continuity of Care Document ---
Author Name Unknown Address [address] [place] [address] [facility] [address] [place] [address] Care Team Providers Care Waste Minimization Technician Name Role Phone Pcp, Patient Does Not Have A Primary Care Physic patrick Felicita Solares Attending Clinician + FELICITA HOLMAN Attending Clinician Unavail able Doctor Unassigned, Satilla Attending Clinician U DICK Whalen Attending Clinician Unavailable COLBY SORIA Attending Clinician Nancy Elizabeth Haider Attending Clinicia n ELIZABETH IBARRA Attending Clinician Unav Colby Ross MD Attending Clinician Pcp, Patient Does Not Have A Attending Clinician Maribeth Kelly MA Attending Clinician Unavailcliff portillo Provider, Crista Walsh Attending Clinician Nancy Alysha Holguin PA-C Attending Clinician [phone] Lilo Burnett Attending Clinician [phone] LILO MOHAN Attending Clinician Unavailabl e Lab, Juantiafiliberto Attending Clinician Unavailable Maurice Cardona Attending Clinician [phone] MAURICE GONZALEZ Attending Clinician Unavailab ALYSHA Mustafa Attending Clinician Unavailable VINCENT HOWE Attending Clinician Unavailable Lew Trevizo MD Attending Clinician [phone] LEW TREVIZO Attending Clinician Unavailable Nurse, [facility] Attending Clinician Un available Vito Espinal DO Attending Clinician Jennifer NEFF, Kristal Attending Clinician Unavailabl e 2, [facility] Lab Attending Clinician Unavailable Ultrasound, [facility] Attending Clinician Unavaila sanaz Matias MD, Melendez Attending Clinician + Laci Chappell MD Attending Clinician [phone] 1, [facility] Attending Clinician Unavailab jeanine Cook MD, Lili Attending Clinician [phone] Lab/Pedi, [facility] Attending Clinician Unavaila Venkatesh Diaz DO Attending Clinician [phone] Destiny Bond Attending Clinician + [phone] DESTINY NOVA Attending Clinician Unavailab LEW Andrews Admitting Clinician Unavailable Pierre PARISH, Lew Hodge Admitting Clinician [phone] Payers Payer Name Policy Type Policy Number Effective Date Expirati on Date Source FORMERLY [facility] MEDICAID [id number] 2020 00:00:00 MEDICAID PENDING PENDING 2020 00:00:00 Problems Condition Name Condition Details Condition Category Status Onset Date Resolution Date Last Treatment Date Treating Clinician Comments Source Encounter for IUD removal Encounter for IUD removal Disease Active 3-15 00:00: 00 [facility] ASCUS of cervix with negative high risk HPV ASCUS of cervix with negative high risk HPV Disease Active 8-24 00:00: 00 [facility] Well woman exam Well woman exam Disease Active 5-04 00:00: 00 [facility] Other depression Other depression Disease Active 5-04 00:00: 00 [facility] Elevated blood pressure reading without diagnosis of hypertensi on Elevated blood pressure reading without diagnosis of hypertensi on Disease Active 5-04 00:00: 00 [facility] IUD (intrauter ine device) in place IUD (intrauter ine device) in place Disease Active 1-25 00:00: 00 [facility] Other general counseling and advice for contracept trevor management Other general counseling and advice for contracept trevor management Disease Active 4-21 00:00: 00 [facility] Multiparit y Multiparit y Disease Active 8-11 00:00: 00 [facility] Allergies, Adverse Reactions, Alerts Allergy Name Allergy Type Status Severity Reaction(s) Onset Date Inactive Date Treating Clinician Comments Source Adhesive Propensi ty to adverse reaction s Active Rash 10-14 00:00: 00 [facility] ADHESIVE Drug Class Active Rash 10-14 00:00: 00 [facility] Adhesive Propensi ty to adverse reaction s Active Rash 10-14 00:00: 00 [facility] Social History Social Habit Start Date Stop Date Quantity Comments Source History of tobacco use 2020-03-20 00:00:00 Cigarette Smoker [facility]ION [facility] Alcohol intake 2023-05-25 00:00:00 2023-05-25 00:00:00 Current non-drinker of alcohol (finding) [facility] History of Social function 2023-05-25 00:00:00 2023-05-25 00:00:00 [facility] Exposure to SARS-CoV-2 (event) 2023-03-18 00:00:00 2023-03-28 07:21:00 Not sure [facility] Cigarettes smoked current (pack per day) - Reported 2022-04-20 00:00:00 2022-04-20 00:00:00 [facility] Cigarette pack-years 2022-04-20 00:00:00 2022-04-20 00:00:00 [facility] Tobacco use and exposure 2022-04-20 00:00:00 2022-04-20 00:00:00 Smokeless tobacco non-user [facility] Sex Assigned At 1990 00:00:00 1990 00:00:00 [facility] Smoking Status Start Date Stop Date Source Ex-smoker 2022-04-20 00:00:00 2022-04-20 00:00:00 [facility] Medications Ordered Medication Name Filled Medication Name Start Date Stop Date Current Medication? Ordering Clinician Indication Dosage Frequency Signature (SIG) Comments Components Source metroNIDAZO LE 500 mg tablet 8-17 00:00: 00 06-02 04:59 :00 No [id number] 500mg Take 1 tablet by mouth in the morning and 1 tablet in the evening. Do all this for 7 days. [facility] No known medications 04-21 10:35: 34 No No known medication s [facility] metroNIDAZO LE 500 mg tablet 04-21 00:00: 00 04-29 04:59 :00 No [id number] 500mg Take 1 tablet by mouth every 12 (twelve) hours for 7 days. [facility] metroNIDAZO LE 500 mg tablet 5-06 00:00: 00 04-21 00:00 :00 No [id number] 500mg Take 1 tablet by mouth 2 (two) times daily. [facility] SERTraline (ZOLOFT) 25 mg tablet 6-02 00:00: 00 04-21 00:00 :00 No [id number] 25mg Take 1 tablet by mouth daily. [facility] Immunizations Ordered Immunization Name Filled Immunization Name Date Status Comments Source Rho (d) Immune Globulin 2020-12-25 00:00:00 Completed [facility] Rho (d) Immune Globulin 2020-12-25 00:00:00 Completed [facility] Rho (d) Immune Globulin 2020-12-25 00:00:00 Completed [facility] Rho (d) Immune Globulin 2020-12-25 00:00:00 Completed [facility] Rho (d) Immune Globulin 2020-12-25 00:00:00 Completed [facility] Rho (d) Immune Globulin 2020-12-25 00:00:00 Completed [facility] Rho (d) Immune Globulin 2020-12-25 00:00:00 Completed [facility] Rho (d) Immune Globulin 2020-12-25 00:00:00 Completed [facility] Rho (d) Immune Globulin 2020-12-25 00:00:00 Completed [facility] Rho (d) Immune Globulin 2020-12-25 00:00:00 Completed [facility] Rho (d) Immune Globulin 2020-12-25 00:00:00 Completed [facility] Rho (d) Immune Globulin 2020-12-25 00:00:00 Completed [facility] Rho (d) Immune Globulin 2020-12-25 00:00:00 Completed [facility] Rho (d) Immune Globulin 2020-12-25 00:00:00 Completed [facility] Rho (d) Immune Globulin 2020-12-25 00:00:00 Completed [facility] Rho (d) Immune Globulin 2020-12-25 00:00:00 Completed [facility] Rho (d) Immune Globulin 2020-12-25 00:00:00 Completed [facility] Rho (d) Immune Globulin 2020-12-25 00:00:00 Completed [facility] Rho (d) Immune Globulin 2020-12-25 00:00:00 Completed [facility] Rho (d) Immune Globulin 2020-12-25 00:00:00 Completed [facility] Rho (d) Immune Globulin 2020-10-08 00:00:00 Completed [facility] TDAP 2020-10-08 00:00:00 Completed [facility] Rho (d) Immune Globulin 2020-10-08 00:00:00 Completed [facility] TDAP 2020-10-08 00:00:00 Completed [facility] Rho (d) Immune Globulin 2020-10-08 00:00:00 Completed [facility] TDAP 2020-10-08 00:00:00 Completed [facility] Rho (d) Immune Globulin 2020-10-08 00:00:00 Completed [facility] TDAP 2020-10-08 00:00:00 Completed [facility] Rho (d) Immune Globulin 2020-10-08 00:00:00 Completed [facility] TDAP 2020-10-08 00:00:00 Completed [facility] Rho (d) Immune Globulin 2020-10-08 00:00:00 Completed [facility] TDAP 2020-10-08 00:00:00 Completed [facility] Rho (d) Immune Globulin 2020-10-08 00:00:00 Completed [facility] TDAP 2020-10-08 00:00:00 Completed [facility] Rho (d) Immune Globulin 2020-10-08 00:00:00 Completed [facility] TDAP 2020-10-08 00:00:00 Completed [facility] Rho (d) Immune Globulin 2020-10-08 00:00:00 Completed [facility] TDAP 2020-10-08 00:00:00 Completed [facility] Rho (d) Immune Globulin 2020-10-08 00:00:00 Completed [facility] TDAP 2020-10-08 00:00:00 Completed [facility] Rho (d) Immune Globulin 2020-10-08 00:00:00 Completed [facility] TDAP 2020-10-08 00:00:00 Completed [facility] Rho (d) Immune Globulin 2020-10-08 00:00:00 Completed [facility] TDAP 2020-10-08 00:00:00 Completed [facility] Rho (d) Immune Globulin 2020-10-08 00:00:00 Completed [facility] TDAP 2020-10-08 00:00:00 Completed [facility] Rho (d) Immune Globulin 2020-10-08 00:00:00 Completed [facility] TDAP 2020-10-08 00:00:00 Completed [facility] Rho (d) Immune Globulin 2020-10-08 00:00:00 Completed [facility] TDAP 2020-10-08 00:00:00 Completed [facility] Rho (d) Immune Globulin 2020-10-08 00:00:00 Completed [facility] TDAP 2020-10-08 00:00:00 Completed [facility] Rho (d) Immune Globulin 2020-10-08 00:00:00 Completed [facility] TDAP 2020-10-08 00:00:00 Completed [facility] Rho (d) Immune Globulin 2020-10-08 00:00:00 Completed [facility] TDAP 2020-10-08 00:00:00 Completed [facility] Rho (d) Immune Globulin 2020-10-08 00:00:00 Completed [facility] TDAP 2020-10-08 00:00:00 Completed [facility] Rho (d) Immune Globulin 2020-10-08 00:00:00 Completed [facility] TDAP 2020-10-08 00:00:00 Completed [facility] Influenza Virus Vaccine Quad .5 mL IM 6+ MO 2020-09-10 00:00:00 Completed [facility] Influenza Virus Vaccine Quad .5 mL IM 6+ MO 2020-09-10 00:00:00 Completed [facility] Influenza Virus Vaccine Quad .5 mL IM 6+ MO 2020-09-10 00:00:00 Completed [facility] Influenza Virus Vaccine Quad .5 mL IM 6+ MO 2020-09-10 00:00:00 Completed [facility] Influenza Virus Vaccine Quad .5 mL IM 6+ MO 2020-09-10 00:00:00 Completed [facility] Influenza Virus Vaccine Quad .5 mL IM 6+ MO 2020-09-10 00:00:00 Completed [facility] Influenza Virus Vaccine Quad .5 mL IM 6+ MO 2020-09-10 00:00:00 Completed [facility] Influenza Virus Vaccine Quad .5 mL IM 6+ MO 2020-09-10 00:00:00 Completed [facility] Influenza Virus Vaccine Quad .5 mL IM 6+ MO 2020-09-10 00:00:00 Completed [facility] Influenza Virus Vaccine Quad .5 mL IM 6+ MO 2020-09-10 00:00:00 Completed [facility] Influenza Virus Vaccine Quad .5 mL IM 6+ MO 2020-09-10 00:00:00 Completed [facility] Influenza Virus Vaccine Quad .5 mL IM 6+ MO 2020-09-10 00:00:00 Completed [facility] Influenza Virus Vaccine Quad .5 mL IM 6+ MO 2020-09-10 00:00:00 Completed [facility] Influenza Virus Vaccine Quad .5 mL IM 6+ MO 2020-09-10 00:00:00 Completed [facility] Influenza Virus Vaccine Quad .5 mL IM 6+ MO 2020-09-10 00:00:00 Completed [facility] Influenza Virus Vaccine Quad .5 mL IM 6+ MO 2020-09-10 00:00:00 Completed [facility] Influenza Virus Vaccine Quad .5 mL IM 6+ MO 2020-09-10 00:00:00 Completed [facility] Influenza Virus Vaccine Quad .5 mL IM 6+ MO 2020-09-10 00:00:00 Completed [facility] Influenza Virus Vaccine Quad .5 mL IM 6+ MO 2020-09-10 00:00:00 Completed [facility] Influenza Virus Vaccine Quad .5 mL IM 6+ MO 2020-09-10 00:00:00 Completed [facility] Rho (d) Immune Globulin 2020-05-05 00:00:00 Completed [facility] Rho (d) Immune Globulin 2020-05-05 00:00:00 Completed [facility] Rho (d) Immune Globulin 2020-05-05 00:00:00 Completed [facility] Rho (d) Immune Globulin 2020-05-05 00:00:00 Completed [facility] Rho (d) Immune Globulin 2020-05-05 00:00:00 Completed [facility] Rho (d) Immune Globulin 2020-05-05 00:00:00 Completed [facility] Rho (d) Immune Globulin 2020-05-05 00:00:00 Completed [facility] Rho (d) Immune Globulin 2020-05-05 00:00:00 Completed [facility] Rho (d) Immune Globulin 2020-05-05 00:00:00 Completed [facility] Rho (d) Immune Globulin 2020-05-05 00:00:00 Completed [facility] Rho (d) Immune Globulin 2020-05-05 00:00:00 Completed [facility] Rho (d) Immune Globulin 2020-05-05 00:00:00 Completed [facility] Rho (d) Immune Globulin 2020-05-05 00:00:00 Completed [facility] Rho (d) Immune Globulin 2020-05-05 00:00:00 Completed [facility] Rho (d) Immune Globulin 2020-05-05 00:00:00 Completed [facility] Rho (d) Immune Globulin 2020-05-05 00:00:00 Completed [facility] Rho (d) Immune Globulin 2020-05-05 00:00:00 Completed [facility] Rho (d) Immune Globulin 2020-05-05 00:00:00 Completed [facility] Rho (d) Immune Globulin 2020-05-05 00:00:00 Completed [facility] Rho (d) Immune Globulin 2020-05-05 00:00:00 Completed [facility] PPD (TB) 2015-11-06 00:00:00 Completed [facility] PPD (TB) 2015-11-06 00:00:00 Completed [facility] PPD (TB) 2015-11-06 00:00:00 Completed [facility] PPD (TB) 2015-11-06 00:00:00 Completed [facility] PPD (TB) 2015-11-06 00:00:00 Completed [facility] PPD (TB) 2015-11-06 00:00:00 Completed [facility] PPD (TB) 2015-11-06 00:00:00 Completed [facility] PPD (TB) 2015-11-06 00:00:00 Completed [facility] PPD (TB) 2015-11-06 00:00:00 Completed [facility] PPD (TB) 2015-11-06 00:00:00 Completed [facility] PPD (TB) 2015-11-06 00:00:00 Completed [facility] PPD (TB) 2015-11-06 00:00:00 Completed [facility] PPD (TB) 2015-11-06 00:00:00 Completed [facility] PPD (TB) 2015-11-06 00:00:00 Completed [facility] PPD (TB) 2015-11-06 00:00:00 Completed [facility] PPD (TB) 2015-11-06 00:00:00 Completed [facility] PPD (TB) 2015-11-06 00:00:00 Completed [facility] PPD (TB) 2015-11-06 00:00:00 Completed [facility] PPD (TB) 2015-11-06 00:00:00 Completed [facility] PPD (TB) 2015-11-06 00:00:00 Completed [facility] Td 2006-11-06 00:00:00 Completed [facility] Td 2006-11-06 00:00:00 Completed [facility] Td 2006-11-06 00:00:00 Completed [facility] Td 2006-11-06 00:00:00 Completed [facility] Td 2006-11-06 00:00:00 Completed [facility] TD, NOS 2006-11-06 00:00:00 Completed [facility] TD, NOS 2006-11-06 00:00:00 Completed [facility] TD, NOS 2006-11-06 00:00:00 Completed [facility] TD, NOS 2006-11-06 00:00:00 Completed [facility] TD, NOS 2006-11-06 00:00:00 Completed [facility] TD, NOS 2006-11-06 00:00:00 Completed [facility] TD, NOS 2006-11-06 00:00:00 Completed [facility] TD, NOS 2006-11-06 00:00:00 Completed [facility] TD, NOS 2006-11-06 00:00:00 Completed [facility] TD, NOS 2006-11-06 00:00:00 Completed [facility] TD, NOS 2006-11-06 00:00:00 Completed [facility] TD, NOS 2006-11-06 00:00:00 Completed [facility] TD, NOS 2006-11-06 00:00:00 Completed [facility] TD, NOS 2006-11-06 00:00:00 Completed [facility] TD, NOS 2006-11-06 00:00:00 Completed [facility] TD, NOS Unknown Completed [facility] PPD (TB) Unknown Completed [facility] Rho (d) Immune Globulin Unknown Completed [facility] Influenza Virus Vaccine Quad .5 mL IM 6+ MO (FLUZONE/FLULAVAL/F LUARIX) Unknown Completed [facility] Rho (d) Immune Globulin Unknown Completed [facility] TDAP Unknown Completed [facility] Rho (d) Immune Globulin Unknown Completed [facility] TD, NOS Unknown Completed [facility] PPD (TB) Unknown Completed [facility] Rho (d) Immune Globulin Unknown Completed [facility] Influenza Virus Vaccine Quad .5 mL IM 6+ MO (FLUZONE/FLULAVAL/F LUARIX) Unknown Completed [facility] TD, NOS Unknown Completed [facility] PPD (TB) Unknown Completed [facility] Rho (d) Immune Globulin Unknown Completed [facility] Influenza Virus Vaccine Quad .5 mL IM 6+ MO (FLUZONE/FLULAVAL/F LUARIX) Unknown Completed [facility] Rho (d) Immune Globulin Unknown Completed [facility] TDAP Unknown Completed [facility] Rho (d) Immune Globulin Unknown Completed [facility] TD, NOS Unknown Completed [facility] PPD (TB) Unknown Completed [facility] Rho (d) Immune Globulin Unknown Completed [facility] Influenza Virus Vaccine Quad .5 mL IM 6+ MO (FLUZONE/FLULAVAL/F LUARIX) Unknown Completed [facility] Rho (d) Immune Globulin Unknown Completed [facility] TDAP Unknown Completed [facility] Rho (d) Immune Globulin Unknown Completed [facility] TD, NOS Unknown Completed [facility] PPD (TB) Unknown Completed [facility] Rho (d) Immune Globulin Unknown Completed [facility] Influenza Virus Vaccine Quad .5 mL IM 6+ MO (FLUZONE/FLULAVAL/F LUARIX) Unknown Completed [facility] Rho (d) Immune Globulin Unknown Completed [facility] TDAP Unknown Completed [facility] Rho (d) Immune Globulin Unknown Completed [facility] Vital Signs Vital Name Observation Time Observation Value Comments S ource Systolic blood pressure 2023-12-22 19:44:00 135 mm[Hg] [facility] Diastolic blood pressure 2023-12-22 19:44:00 76 mm[Hg] [facility] Heart rate 2023-12-22 19:37:00 82 /[facility] 2023-12-22 19:37:00 37.06 Shruti [facility] Respiratory rate 2023-12-22 19:37:00 17 /min [facility] Body height 2023-12-22 19:37:00 170.2 cm [facility] Body weight 2023-12-22 19:37:00 76.794 kg [facility] BMI 2023-12-22 19:37:00 26.52 kg/m2 [facility] Systolic blood pressure 2023-05-25 14:09:00 137 mm[Hg] [facility] Diastolic blood pressure 2023-05-25 14:09:00 82 mm[Hg] [facility] Heart rate 2023-05-25 14:09:00 69 /min [facility] Body temperature 2023-05-25 14:09:00 36.89 Shruti [facility] Respiratory rate 2023-05-25 14:09:00 18 /min [facility] Body height 2023-05-25 14:09:00 170.2 cm [facility] Body weight 2023-05-25 14:09:00 70.081 kg [facility] BMI 2023-05-25 14:09:00 24.20 kg/m2 Univ [facility] Body temperature 2023-05-09 16:08:00 35.83 Shruti [facility] Body height 2023-05-09 16:08:00 170.2 cm Univ [facility] Body weight 2023-05-09 16:08:00 58.514 kg [facility] BMI 2023-05-09 16:08:00 20.20 kg/m2 Univ [facility] Systolic blood pressure 2023-03-28 13:57:00 126 mm[Hg] [facility] Diastolic blood pressure 2023-03-28 13:57:00 71 mm[Hg] [facility] Heart rate 2023-03-28 13:57:00 82 /min [facility] Body temperature 2023-03-28 13:57:00 36.28 Shruti [facility] Body height 2023-03-28 13:57:00 170.2 cm [facility] Body weight 2023-03-28 13:57:00 58.514 kg [facility] BMI 2023-03-28 13:57:00 20.20 kg/m2 [facility] Systolic blood pressure 2022-04-20 20:52:00 111 mm[Hg] [facility] Diastolic blood pressure 2022-04-20 20:52:00 74 mm[Hg] [facility] Heart rate 2022-04-20 20:52:00 93 /min Unive [facility] Body temperature 2022-04-20 20:52:00 36.78 Shruti [facility] Respiratory rate 2022-04-20 20:52:00 16 /min [facility] Body height 2022-04-20 20:52:00 170.2 cm [facility] Body weight 2022-04-20 20:52:00 58.695 kg [facility] BMI 2022-04-20 20:52:00 20.27 kg/m2 [facility] Procedures Procedure Date / Time Performed Performing Clinician Source DISCLOSURE AND CONSENT MEDICAL & SURGICAL PROCEDURES - FEMALM 2023-12-22 05:01:00 Doctor Unassigned, [place] [facility] THYROID STIMULATING HORMONE 2023-05-25 15:22:00 Elizabeth Ibarra [facility] COMP. METABOLIC PANEL (04658) 2023-05-25 15:22:00 Elizabeth Ibarra [facility] CBC WITH DIFF 2023-05-25 15:22:00 Javier Ibarra [facility] GLYCOSYLATED HEMOGLOBIN (A1C) 2023-05-25 15:22:00 Elizabeth Ibarra [facility] GC & CHLAMYDIA AMPLIFIED ASSAY 2023-05-25 15:22:00 Elizabeth Ibarra [facility] LAB ONLY PAP SMEAR-LIQUID BASED 2023-05-25 15:22:00 Elizabeth Ibarra [facility] GALV ONLY - VAGINAL PATHOGENS BY NUCLEIC ACID TESTING 2023-05-25 15:22:00 Elizabeth Ibarra [facility] HIV 1/2 AG-AB WITH REFLEX 2023-05-25 15:22:00 Elizabeth Ibarra [facility] HIGH RISK HPV-THIN PREP 2023-05-25 15:22:00 Elizabeth Schuler [facility] PAP SMEAR-LIQUID BASED-CP 2023-05-25 15:22:00 Elizabeth Ibarra [facility] SYPHILIS IGG/IGM 2023-05-25 15:22:00 Adilene Ibarra [facility] PATIENT FINANCIAL POLICY 2023-05-09 17:02:22 Doctor Unassigned, [place] [facility] CONSENT/REFUSAL FOR DIAGNOSIS AND TREATMENT 2023-05-09 16:04:48 Doctor Unassigned, [place] [facility] Encounters Start Date/Time End Date/Time Encounter Type Admission Type Attending Clinicians Care Facility Care Department Encounter ID Source 2021-08-08 06:28:29 Outpatient P [facility] APRIL [id number] [facility] 2021-08-06 09:16:09 Emergency [facility] [id number] [facility] 2023-12-22 15:00:00 2023-12-22 15:30:00 Office Visit Felicita Holman [facility] & [facility]ILD [facility] 1.2.840.114 350.1.13.10 4.2.7.2.686 [id number] [facility] 2023-12-22 15:00:00 2023-12-22 15:00:00 Outpatient R FELICITA HOLMAN [facility] [id number] [facility] 2023-12-22 00:00:00 2023-12-22 00:00:00 Orders Only Doctor Unassigned, [place] [facility] 1..840.114 350.1.13.10 4.2.7.2.686 [id number] [facility] 2023-12-21 13:30:00 2023-12-21 13:30:00 Outpatient R DICK IVORY [facility] [id number] [facility] 2023-06-02 00:00:00 2023-06-02 00:00:00 Telephone Elizabeth Ibarra [facility] 1.2840.114 350.1.13.10 4.2.7.2.686 [id number] [facility] 2023-05-25 08:45:00 2023-05-25 10:21:32 Outpatient R ELIZABETH IBARRA CHRISTINA [facility] [id number] [facility] 2023-05-25 08:45:00 2023-05-25 10:21:32 Office Visit Elizabeth Ibarra [facility] 1.2.840.114 350.1.13.10 4.2.7.2.686 [id number] [facility] 2023-05-12 00:00:00 2023-05-12 00:00:00 Telephone Colby Soria [facility] 1.2840.114 350.1.13.10 4.2.7.2.686 [id number] [facility] 2023-05-10 00:00:00 2023-05-10 00:00:00 Patient Secure Msg Pcp, Patient Does Not Have A [facility] 1.2.840.114 350.1.13.10 4.2.7.2.686 [id number] [facility] 2023-05-09 11:11:30 2023-05-09 23:59:00 Outpatient R COLBY SORIA [facility] [id number] [facility] 2023-05-09 11:11:30 2023-05-09 23:59:00 Hospital Encounter Colby Soria [facility] 1.2.840.114 350.1.13.10 4.2.7.2.686 [id number] [facility] 2023-05-09 11:10:00 2023-05-09 11:52:43 Office Visit Colby Soria [facility] 1.2.840.114 350.1.13.10 4.2.7.2.686 [id number] [facility] 2023-05-09 00:00:00 2023-05-09 00:00:00 Orders Only Doctor Unassigned, Sat[place] [facility] 1.2840.114 350.1.13.10 4.2.7.2.686 [id number] [facility] 2023-05-09 00:00:00 2023-05-09 00:00:00 Telephone Colby Soria [facility] 1.2840.114 350.1.13.10 4.2.7.2.686 [id number] [facility] 2023-03-28 09:30:00 2023-03-28 09:30:57 Outpatient R COLBY SORIA [facility] [id number] [facility] 2023-03-28 09:30:00 2023-03-28 09:30:57 Office Visit oClby Soria [facility] 1.840.114 350.1.13.10 4.2.7.2.686 [id number] [facility] 2023-03-28 00:00:00 2023-03-28 00:00:00 Letter (Out) Colby Soria [facility] 1.2840.114 350.1.13.10 4.2.7.2.686 [id number] [facility] 2023-02-02 00:00:00 2023-02-02 00:00:00 Case Management Maribeth Kelly 1.2840.114 350.1.13.10 4.2.7.2.686 [id number] [facility] 2022-05-20 00:00:00 2022-05-20 00:00:00 Telephone Felicita Holman [facility] MATERNAL & CHILD [facility] 1..840.114 350.1.13.10 4.2.7.2.686 [id number] [facility] 2022-05-19 14:30:00 2022-05-19 14:30:00 Outpatient R FELICITA HOLMAN [facility] [id number] [facility] 2022-05-19 10:15:00 2022-05-19 10:15:00 Outpatient R FELICITA HOLMAN [facility] [id number] [facility] 2022-05-18 00:00:00 2022-05-18 00:00:00 Telephone Provider, Crista Walsh [facility] 1.2.840.114 350.1.13.10 4.2.7.2.686 [id number] [facility] 2022-05-04 00:00:00 2022-05-04 00:00:00 Alysha Sewell [facility] 1..840.114 350.1.13.10 4.2.7.2.686 [id number] [facility] 2022-04-21 00:00:00 2022-04-21 00:00:00 Case Management Lilo Mohan [facility] MATERNAL & CHILD HEALTH [facility] 1..840.114 350.1.13.10 4.2.7.2.686 [id number] [facility] 2022-04-20 15:00:00 2022-04-20 16:30:02 Outpatient LILO KNAPP EMILY [facility] [id number] [facility] 2022-04-20 15:00:00 2022-04-20 16:30:02 Office Visit Provider, Lilo Lira [facility] MAT[facility]NAL [facility] CHILD [facility] 1.2.840.114 350.1.13.10 4.2.7.2.686 [id number] [facility] 2022-03-02 15:00:00 2022-03-02 15:00:00 Outpatient R FELICITA HOLMAN [facility] [id number] [facility] 2022-03-02 15:00:00 2022-03-02 15:00:00 Outpatient R FELICITA HOLMAN [facility] [id number] [facility] 2022-03-02 15:00:00 2022-03-02 15:00:00 Outpatient R FELICITA HOLMAN [facility] [id number] [facility] 2022-02-11 00:00:00 2022-02-11 00:00:00 Telephone Felicita Holman [facility]ILD [facility] 1..840.114 350.1.13.10 4.2.7.2.686 [id number] [facility] 2022-02-09 09:30:00 2022-02-09 10:12:31 Office Visit Felicita Holman [facility] 1..840.114 350.1.13.10 4.2.7.2.686 [id number] [facility] 2022-02-09 09:30:00 2022-02-09 10:12:31 Outpatient R FELICITA HOLMAN [facility] [id number] [facility] 2022-02-09 09:30:00 2022-02-09 09:30:00 Outpatient R FELICITA HOLMAN [facility] [id number] [facility] 2022-02-09 09:30:00 2022-02-09 09:30:00 Outpatient R FELICITA HOLMAN [facility] [id number] [facility] 2022-02-08 00:00:00 2022-02-08 00:00:00 Telephone Felicita Holman [facility] 1..114 350.1.13.10 4.2.7.2.686 [id number] [facility] 2022-02-03 13:30:00 2022-02-03 13:45:00 Customer Service Sales Associate Visit Lab, [facility] Maurice Gonzalez [facility] 1..114 350.1.13.10 4.2.7.2.686 [id number] [facility] 2022-02-03 13:30:00 2022-02-03 13:30:00 Outpatient R MAURICE GONZALEZ [facility] [id number] [facility] 2022-02-03 00:00:00 2022-02-03 00:00:00 Telephone Felicita Holman [facility] ..114 350.1.13.10 4.2.7.2.686 [id number] [facility] 2022-02-01 08:00:00 2022-02-01 08:15:56 Outpatient R MAURICE GONZALEZ [facility] [id number] [facility] 2022-02-01 08:00:00 2022-02-01 08:15:56 Office Visit Maurice Gonzalez [facility] 1..114 350.1.13.10 4.2.7.2.686 [id number] [facility] 2022-02-01 00:00:00 2022-02-01 00:00:00 Orders Only Doctor Unassigned, [place] [facility] .2.840.114 350.1.13.10 4.2.7.2.686 [id number] [facility] 2022-01-28 00:00:00 2022-01-28 00:00:00 Telephone Felicita Holman [facility] 1.2.840.114 350.1.13.10 4.2.7.2.686 [id number] [facility] 2021-11-04 16:00:00 2021-11-04 16:00:00 Outpatient ALYSHA TAI [facility] [id number] [facility] 2021-11-03 00:00:00 2021-11-03 00:00:00 Telephone Felicita Holman [facility] CHILD [facility] 1.2.840.114 350.1.13.10 4.2.7.2.686 [id number] [facility] 2021-11-03 00:00:00 2021-11-03 00:00:00 Telephone Felicita Holman [facility] CH[facility] 1.2.840.114 350.1.13.10 4.2.7.2.686 [id number] [facility] 2021-11-02 14:15:00 2021-11-02 14:30:00 Office Visit Felicita Holman [facility] CH[facility] 1.2.840.114 350.1.13.10 4.2.7.2.686 [id number] [facility] 2021-11-02 14:15:00 2021-11-02 14:15:00 Outpatient FELICITA QUIGLEY [facility] [id number] [facility] 2021-07-22 13:00:00 2021-07-22 13:00:00 Outpatient ALYSHA TAI [facility] [id number] [facility] 2021-03-31 09:00:00 2021-03-31 09:00:00 Outpatient R BIREED VINCENT [facility] [id number] [facility] 2021-03-10 13:15:00 2021-03-10 13:15:00 Outpatient R ROBERT [facility] [id number] [facility] 2021-03-10 09:34:52 2021-03-10 10:04:52 Telemedici ne Visit Robert Alyhsa [facility] 1.2.840.114 350.1.13.10 4.2.7.2.686 [id number] [facility] 2021-02-24 09:07:01 2021-02-24 09:43:41 Office Visit Lew Trevizo [facility] 1.2.840.114 350.1.13.10 4.2.7.2.686 [id number] [facility] 2021-02-24 09:30:00 2021-02-24 09:30:00 Outpatient R TREVIZO LEW [facility] [id number] [facility] 2021-02-11 15:45:00 2021-02-11 15:45:00 Outpatient R ROBERT [facility] [id number] [facility] 2021-02-10 16:00:00 2021-02-10 16:00:00 Outpatient R ROBERT [facility] [id number] [facility] 2021-02-10 15:12:21 2021-02-10 15:39:53 Telemedici ne Visit Robert [facility] 1.2.840.114 350.1.13.10 4.2.7.2.686 [id number] [facility] 2021-02-10 00:00:00 2021-02-10 00:00:00 Telephone Lew Trevizo [facility] 1.2.840.114 350.1.13.10 4.2.7.2.686 [id number] [facility] 2021-01-27 09:00:09 2021-01-27 09:46:10 Office Visit Lew Trevizo [facility] 1.2840.114 350.1.13.10 4.2.7.2.686 [id number] [facility] 2021-01-27 09:00:00 2021-01-27 09:00:00 Outpatient R LEW TREVIZO [facility] [id number] [facility] 2021-01-27 00:00:00 2021-01-27 00:00:00 Orders Only Doctor Unassigned, [place] [facility] 1.2840.114 350.1.13.10 4.2.7.2.686 [id number] [facility] 2021-01-20 10:00:23 2021-01-20 10:15:23 Routine Visit Alysha Jones [facility] 1.2.840.114 350.1.13.10 4.2.7.2.686 [id number] [facility] 2021-01-20 09:45:00 2021-01-20 09:45:00 [facility] [id number] [facility] 2020-12-30 09:59:08 2020-12-30 10:15:49 Nurse Visit Nurse, [facility] Lew Trevizo [facility] 1.2.840.114 350.1.13.10 4.2.7.2.686 [id number] [facility] 2020-12-30 10:00:00 2020-12-30 10:00:00 Outpatient R LEW TREVIZO [facility] [id number] [facility] 2020-12-29 00:00:00 2020-12-29 00:00:00 Patient Outreach Vito Espinal [facility] 1.2.840.114 350.1.13.10 4.2.7.2.686 [id number] [facility] 2020-12-22 16:53:00 2020-12-27 10:20:00 Hospital Encounter Lew Trevizo [facility] 1.2.840.114 350.1.13.10 4.2.7.2.686 [id number] [facility] 2020-12-22 15:59:10 2020-12-22 17:30:07 Routine Visit Lew Trevizo [facility] Professio nal Building 1.2840.114 350.1.13.10 4.2.7.2.686 [id number] [facility] 2020-12-22 16:00:00 2020-12-22 16:00:00 Outpatient R LEW TREVIZO [facility] [id number] [facility] 2020-12-21 00:00:00 2020-12-21 00:00:00 Telephone Lew Trevizo [facility] Professio nal Building 1.2.840.114 350.1.13.10 4.2.7.2.686 [id number] [facility] 2020-12-19 00:00:00 2020-12-19 00:00:00 Nurse Triage Kristal Rodriguez [facility] 1.2.840.114 350.1.13.10 4.2.7.2.686 [id number] [facility] 2020-12-15 14:44:49 2020-12-15 15:28:42 Routine Visit Lew Trevizo [facility] Professio nal Building 1.2.840.114 350.1.13.10 4.2.7.2.686 [id number] [facility] 2020-12-15 14:45:00 2020-12-15 14:45:00 Outpatient R LEW TREVIZO [facility] [id number] [facility] 2020-12-09 15:41:25 2020-12-09 16:27:33 Routine Visit Alysha Jones [facility] 1.2840.114 350.1.13.10 4.2.7.2.686 [id number] [facility] 2020-12-09 15:45:00 2020-12-09 15:45:00 Outpatient R LEW TREVIZO [facility] [id number] [facility] 2020-12-01 12:11:58 2020-12-01 12:26:58 Customer Service Sales Associate Visit 2, [facility] 1.2840.114 350.1.13.10 4.2.7.2.686 [id number] [facility] 2020-12-01 11:09:00 2020-12-01 11:55:27 Routine Visit Alysha Jones [facility] 1.2840.114 350.1.13.10 4.2.7.2.686 [id number] [facility] 2020-12-01 11:15:00 2020-12-01 11:15:00 Outpatient R ALYSHA JONES [facility] [id number] [facility] 2020-12-01 00:00:00 2020-12-01 00:00:00 Orders Only Doctor Unassigned, [place] [facility] 1.284.114 350.1.13.10 4.2.7.2.686 [id number] [facility] 2020-11-17 09:45:00 2020-11-17 09:45:00 Outpatient R LEW TREVIZO [facility] [id number] [facility] 2020-11-11 00:00:00 2020-11-11 00:00:00 Abstract Felicita Holman [facility]ERNAL [facility] CHILD [facility] 1.84.114 350.1.13.10 4.2.7.2.686 [id number] [facility] 2020-11-10 12:57:27 2020-11-10 13:27:27 Customer Service Sales Associate Visit Ultrasound, Nora Mart [facility] CHILD [facility] 1.840.114 350.1.13.10 4.2.7.2.686 [id number] [facility] 2020-11-10 13:00:00 2020-11-10 13:00:00 Outpatient P [facility] [id number] [facility] 2020-11-05 11:04:11 2020-11-05 11:19:11 Routine Visit Alysha Jones [facility] Professio [facility] 1.840.114 350.1.13.10 4.2.7.2.686 [id number] [facility] 2020-11-05 11:15:00 2020-11-05 11:15:00 [facility] [id number] [facility] 2020-10-30 08:38:19 2020-10-30 08:53:19 Customer Service Sales Associate Visit 2, Adc Lab Felicita Holman [facility] Professio [facility] 1.840.114 350.1.13.10 4.2.7.2.686 [id number] [facility] 2020-10-30 08:30:00 2020-10-30 08:30:00 Outpatient R FELICITA HOLMAN [facility] [id number] [facility] 2020-10-22 12:55:10 2020-10-22 13:35:14 Routine Visit TrevizoNancyen Naveen [facility] 1..840.114 350.1.13.10 4.2.7.2.686 [id number] [facility] 2020-10-22 13:00:00 2020-10-22 13:00:00 Outpatient R TREVIZOLEW [facility] [id number] [facility] 2020-10-08 13:24:07 2020-10-08 14:15:33 Routine Visit Robert Alysha [facility] 1..840.114 350.1.13.10 4.2.7.2.686 [id number] [facility] 2020-10-08 13:30:00 2020-10-08 13:30:00 Outpatient R SAMEERAJOAQUIN ALYSHA [facility] [id number] [facility] 2020-10-06 13:06:24 2020-10-06 13:21:24 Customer Service Sales Associate Visit 2, [facility] Robert [facility] 1..840.114 350.1.13.10 4.2.7.2.686 [id number] [facility] 2020-10-06 13:00:00 2020-10-06 13:00:00 Outpatient R [facility] [id number] [facility] 2020-10-06 00:00:00 2020-10-06 00:00:00 Telephone Felicita Holman [facility] 1..840.114 350.1.13.10 4.2.7.2.686 [id number] [facility] 2020-09-29 13:15:00 2020-09-29 13:15:00 Outpatient R FELICITA HOLMAN [facility] [id number] [facility] 2020-09-17 00:00:00 2020-09-17 00:00:00 Patient Secure Msg Doctor Unassigned, [place] [facility] 1.2.840.114 350.1.13.10 4.2.7.2.686 [id number] 134 [id number] [facility] 2020-09-17 00:00:00 2020-09-17 00:00:00 Telephone Lew Trevizo [facility] 1.2.840.114 350.1.13.10 4.2.7.2.686 [id number] [facility] 2020-09-10 09:47:46 2020-09-10 11:32:34 Initial Visit Lew Trevizo [facility] 1.2.840.114 350.1.13.10 4.2.7.2.686 [id number] [facility] 2020-09-10 10:00:00 2020-09-10 10:00:00 Outpatient R LEW TREVIZO [facility] [id number] [facility] 2020-09-01 14:04:31 2020-09-01 14:47:06 Routine Visit Felicita Holman [facility] 1..840.114 350.1.13.10 4.2.7.2.686 [id number] [facility] 2020-09-01 14:00:00 2020-09-01 14:00:00 Outpatient R FELICITA HOLMAN [facility] [id number] [facility] 2020-08-18 12:55:14 2020-08-18 13:55:14 Customer Service Sales Associate Visit Ultrasound, Laci Cardozo [facility] 1.2.840.114 350.1.13.10 4.2.7.2.686 [id number] [facility] 2020-08-18 13:00:00 2020-08-18 13:00:00 Outpatient P [facility] [id number] [facility] 2020-08-18 00:00:00 2020-08-18 00:00:00 Abstract AdalFelicita morales Ace [facility] 1.2.840.114 350.1.13.10 4.2.7.2.686 [id number] [facility] 2020-08-04 15:09:07 2020-08-04 15:54:03 Routine Visit Ruben Holmanola Ace [facility] 1.2.840.114 350.1.13.10 4.2.7.2.686 [id number] [facility] 2020-08-04 15:15:00 2020-08-04 15:15:00 Outpatient R FELICITA HOLMAN [facility] [id number] [facility] 2020-07-15 11:00:00 2020-07-15 11:00:00 Outpatient R FELICITA HOLMAN [facility] [id number] [facility] 2020-07-14 15:51:29 2020-07-14 16:22:26 Routine Visit River Felicita Ace [facility] 1.2.840.114 350.1.13.10 4.2.7.2.686 [id number] [facility] 2020-07-14 16:00:00 2020-07-14 16:00:00 Outpatient R FELICITA HOLMAN [facility] [id number] [facility] 2020-07-14 14:00:00 2020-07-14 14:00:00 Outpatient R FELICITA HOLMAN [facility] [id number] [facility] 2020-06-23 00:00:00 2020-06-23 00:00:00 Abstract Felicita Holman [facility] 1.2.840.114 350.1.13.10 4.2.7.2.686 [id number] [facility] 2020-06-22 10:09:58 2020-06-22 10:54:58 Customer Service Sales Associate Visit 1, [facility] 1.2.840.114 350.1.13.10 4.2.7.2.686 [id number] [facility] 2020-06-22 10:47:30 2020-06-22 10:47:50 Customer Service Sales Associate Visit Lab/Pedi, [facility] Cook [facility] 1.2.840.114 350.1.13.10 4.2.7.2.686 [id number] [facility] 2020-06-22 10:00:00 2020-06-22 10:00:00 Outpatient P [facility] [id number] [facility] 2020-06-16 12:46:05 2020-06-16 13:28:32 Routine Visit Felicita Holman [facility] 1.2.840.114 350.1.13.10 4.2.7.2.686 [id number] [facility] 2020-06-16 12:45:00 2020-06-16 12:45:00 Outpatient R FELICITA HOLMAN [facility] [id number] [facility] 2020-06-16 12:45:00 2020-06-16 12:45:00 Outpatient R FELICITA HOLMANMB [facility] [id number] [facility] 2020-05-28 00:00:00 2020-05-28 00:00:00 Telephone Felicita Holman Ace [facility] 1.2840.114 350.1.13.10 4.2.7.2.686 [id number] [facility] 2020-05-19 08:35:51 2020-05-26 08:20:14 Initial Visit Adalmauroclare Felicita Ace [facility] 1.0.114 350.1.13.10 4.2.7.2.686 [id number] [facility] 2020-05-19 08:00:00 2020-05-19 08:00:00 Outpatient R FELICITA HOLMAN [facility] [id number] [facility] 2020-05-19 00:00:00 2020-05-19 00:00:00 Orders Only Doctor Unassigned, Satilla [facility] 1.0.114 350.1.13.10 4.2.7.2.686 [id number] [facility] 2020-05-15 00:00:00 2020-05-15 00:00:00 Telephone Felicita Holman [facility] 1.0.114 350.1.13.10 4.2.7.2.686 [id number] [facility] 2020-05-05 10:46:02 2020-05-05 15:12:00 Emergency Venkatesh Baker [facility] 1.2840.114 350.1.13.10 4.2.7.2.686 [id number] [facility] 2020-04-30 09:00:00 2020-04-30 09:00:00 Outpatient MAURICE GAVIRIA [facility] [id number] [facility] 2020-03-31 00:00:00 2020-03-31 00:00:00 Orders Only Doctor Unassigned, Satilla [facility] 1.20.114 350.1.13.10 4.2.7.2.686 [id number] [facility] 2020-03-26 00:00:00 2020-03-26 00:00:00 Orders Only Doctor Unassigned, Satilla [facility] 1.20.114 350.1.13.10 4.2.7.2.686 [id number] [facility] 2020-03-20 14:20:05 2020-03-20 14:56:27 Office Visit Provider, Destiny Shaw [facility] 1..114 350.1.13.10 4.2.7.2.686 [id number] [facility] 2020-03-20 14:00:00 2020-03-20 14:00:00 Outpatient R [facility] [id number] [facility] 2020-03-20 14:00:00 2020-03-20 14:00:00 Outpatient R DESTINY NOVA [facility] [id number] [facility] 2020-03-20 00:00:00 2020-03-20 00:00:00 Orders Only Doctor Unassigned, Satilla [facility] 1.2.114 350.1.13.10 4.2.7.2.686 [id number] [facility] 2020-03-13 00:00:00 2020-03-13 00:00:00 Telephone Provider, Crista Walsh [facility] 1.0.114 350.1.13.10 4.2.7.2.686 [id number] [facility] 2020-03-11 14:27:49 2020-03-11 14:57:49 Office Visit Provider, Ang-Rmchp Destiny Lovett [facility] 1.2.840.114 350.1.13.10 4.2.7.2.686 [id number] [facility] 2020-03-11 14:30:00 2020-03-11 14:30:00 Outpatient R DESTINY NOVA [facility] [id number] [facility] 2020-03-11 00:00:00 2020-03-11 00:00:00 Orders Only Doctor Unassigned, Satilla [facility] 1.2.840.114 350.1.13.10 4.2.7.2.686 [id number] [facility] Results Test Description Test Time Test Comments Results Result Co mments Source CT/NG, NAAT, [id number] 09:41:50* Test Item Value Reference Range Interpretation Comme nts GONORRHEA, NAAT (test code = 05647) NEGATIVE NEGATIVE IMPORTANT NO KIRSTIN: SEE ANNOUNCEMENT AT [email or web address] (d.b.a. [employer] Kangaroo)/Anibal [place] [employer] Technology[employer] Note: Assay methodology is nucleic acid amplification by burning plant operator mediated amplification (TMA) utilizing the Aptima Combo 2 Assay. CHLAMYDIA, NAAT (test code = 06476) NEGATIVE NEGATIVE IMPORTANT NO KIRSTIN: SEE ANNOUNCEMENT AT [email or web address] [email or web address] heCobasUrineKit Note: Assay methodology is nucleic acid amplification by burning plant operator mediated amplification (TMA) utilizing the Aptima Combo 2 Assay. UNLESS OTHERWISE INDICATED, ALL TESTING PERFORMED ATCLINICAL PATHOLOGY LABORATORIES, INC[facility] [address] [place] [address] WEB OPERATIONS LEAD: LEN MICHAEL M.D. CLIA NUMBER [id number] [facility] [place]. [id number] VAGINAL PATHOGENS DNA [id number] 14:59:38* Test Item Value Reference Range Interpretation Comme nts KENNETH SPECIES (test code = 47878) NEGATIVE NEGATIVE G. VAGINALIS (test code = 69690) NEGATIVE NEGATIVE T. VAGINALIS (test code = 88345) NEGATIVE NEGATIVE Notes Date/Time Note Provider Source 2023-06-02 12:15:45 6151-73-46C06:15:45F ormatting of this note might be different from the original.Images from the original note were not included.Called pt and informed her of results, pt verbalized understanding. Elizabeth Ibarra WHCNP P [facility] call patient to notify that her pap smear shows some abnormal or atypical cells on her cervix. Her test for HPV is negative. She needs a follow up pap smear and HPV test in 3 years, due 05/2026. KELTON HarrisP 43467-4Modskvdcw encounter TetjAC0426-25-95T60:16:31Teleph one encounter NoteTXT1.2.840.346645.1.13.104. 2.7.2.821232|[id number] banner for patient ewso80504-3OjruAZ389510714Rgacp enedelia [place] [address] QtxoTwiskwvufSglxvkrjxJULM17122 92410RWHSNGMCBPTEAKYUNSCOZN6429 -08-25T12:16:311.2.840.776872.1 .72.3.15|1.2.840.411729.1.13.10 4.2.7.2.727879_[id number] [facility] 09:11:53 2156-28-95E15:11:53F ormatting of this note might be different from the original.Called and spoke to patient. Advised patient the below advisement from Dr. Soria. Patient verbalized understanding and did not have any further questions/concerns. Encouraged patient to reach out to clinic with any further questions/concerns. Patient stated "I will, thank you." 17711-4Ozlrrexpn encounter SslvPM4809-99-97N61:14:06Teleph one encounter NoteTXT1.2.840.460725.1.13.104. 2.7.2.444233|[id number] ble for patient hmyu80488-1GlfeCU758514636Mipqv renuka King [address] 56727DKMXNUPUEJUZZBBOHQCTYN8785 -08-07T09:14:061.2.840.222294.1 .72.3.15|1.2.840.105089.1.13.10 4.2.7.2.727879_[id number] Destiny Caballero Fernando [facility] 2023-05-15 06:50:24 0489-51-71M35:50:24F ormatting of this note might be different from the original.We wouldn't consider that type of surgery only on. Only as a later consideration if her ankle fails to heal. Her pain should go away with healing of the fracture but if it doesn't than removal of that bone at a later date would be done to treat her pain.RL 60057-2Vlgtuggoc encounter FapmNK0681-00-25O32:51:10Teleph one encounter NoteTXT1.2.840.677622.1.13.104. 2.7.2.793587|[id number] ble for patient esus71184-8QkyjBWZFC-IXYZHUHUSC C SURGERY [facility]-[facility] SURGERY [address] 10327OUSSPSHHFZTKVTGPSTRJOK4037 -08-07T06:51:101.2.840.088770.1 .72.3.15|1.2.840.612779.1.13.10 4.2.7.2.727879_[id number] ORT-ORTHOPAEDIC SURGERY STAFF [facility] 2023-05-12 14:57:26 2889-48-93C68:57:26F ormatting of this note might be different from the original.Called and spoke to patient. Patient stated she mainly just wants to know if the procedure will take away her pain or not. Advised patient I sent a message to Dr. Soria and once he responds will get advisement back to patient. Patient verbalized understanding and agreed. Patient did not have any further questions/concerns.Electronical ly signed by Destiny King LVN at 05/12/2023 3:02 PM RBC33784-3Ebepbndyh encounter XciuIV9737-14-91G29:02:48Teleph one encounter NoteTXT1.2.840.816508.1.13.104. 2.7.2.381329|[id number] ble for patient gtty98778-8VpywXIYTJNRUNM[address]TX[place] 02517CLFHFDUWNKLHASFSKPAOAO6618 -08-04T15:02:481.2.840.955117.1 .72.3.15|1.2.840.796544.1.13.10 4.2.7.2.727879_[id number] [facility] 2023-05-12 13:24:07 8426-49-52Y30:24:07F ormatting of this note might be different from the original.Note reviewed. Routed to Provider for details on what procedure was discussed that patient is inquiring about. Awaiting advisement. 17449-9Iishzmwkw encounter ZzicRT1204-09-79Q89:25:04Teleph one encounter NoteTXT1.2.840.750030.1.13.104. 2.7.2.949439|[id number] ble for patient gvov18181-8QjofAOOHIKLZTZ[address]TX[address] 73569QPWNXANOJECKGAZMZBMTKY5871 -08-04T13:25:041.2.840.566811.1 .72.3.15|1.2.840.955860.1.13.10 4.2.7.2.727879_[id number] [facility] 2023-05-12 11:58:45 5855-85-18V27:58:45F ormatting of this note might be different from the original.Patient is wanting to speak to a nurse about the pain she is having and the details of the procedure that was offered to her . Would like to discuss what her best option would be . Said the procedure mentioned taking out a bone . She wants to know if it would take away the pain . 48167-1Tpttkapra encounter OcfjBD0368-97-25H58:01:26Teleph one encounter NoteTXT1.2.840.157444.1.13.104. 2.7.2.529715|[id number] banner for patient kcuq86728-7AmstFD359759768Kxxlj [address] IqlpOsaortvclNgmnlxedoTELG[address] 54792MRCDRFLBRASHKQDJLWDRZA5018 -08-04T12:01:261.2.840.893700.1 .72.3.15|1.2.840.326074.1.13.10 4.2.7.2.727879_[id number] Howard Ty [facility] 2023-05-11 09:43:28 7542-42-81K04:43:28F ormatting of this note might be different from the original.Called and spoke to patient. Patient states she would like her RTW letter dated for 05/10/2023. Patient states she would like her RTW letter e-mailed and posted to appening. RTW letter e-mailed and sent to patient via appening as requested. 55504-5Ihudsjiyj encounter WnmaBT0044-59-40P33:02:15Teleph one encounter NoteTXT1.2.840.718601.1.13.104. 2.7.2.856656|[id number] ble for patient xzfh05485-6WzowFG388826177Sdeyv ernuka King [address] 89841WBJVVNATKHRJODJIZNZMID0844 -08-03T10:02:151.2.840.945744.1 .72.3.15|1.2.840.720787.1.13.10 4.2.7.2.727879_[id number] Destinyrudy King [facility] 2023-05-09 13:14:21 1392-25-06O05:14:21F ormatting of this note might be different from the original.Patient is calling in asking for a work release form be sent to her e-mail . E-mail - [email or web address] encounter LipzRK1312-07-47E60:16:33Teleph one encounter NoteTXT1.2.840.491629.1.13.104. 2.7.2.258429|[id number] ble for patient pucj02116-6EutiMA679453418Pugzw [address] 96676HBPUMMIZXVTOWVXMNMSPIC7025 -08-01T13:16:331.2.840.287295.1 .72.3.15|1.2.840.798896.1.13.10 4.2.7.2.727879_[id number] Howard Ty [facility]
[2024-03-18 14:41] LABS: SARS-CoV-2 Antigen CONTROL BLUE LINE VIS/BG OK; SARS-CoV-2 Antigen Rapid Res Negative (Negative)
--- NOTE | 2024-03-18 14:57 | RAD REPORT ---
EXAM DESCRIPTION: Christiano Oro (2 Views)03/18/2024 2:11 pm CLINICAL HISTORY: Cough COMPARISON: 2010 FINDINGS: 6 centimeter left upper lobe consolidation Right is clear. Heart is normal size IMPRESSION: Left upper lobe consolidation likely pneumonia. This should be followed with chest x-ray until it has cleared to help exclude a post obstructive process/underlying mass
[2024-03-18 15:12] LABS: Specific Gravity 1.015 (1.005-1.030)
[2024-03-18 15:20] LABS: Specific Gravity 1.015 (1.005-1.030); Sqamous Epithelial <5 /HPF (None Seen); Urine Bacteria None Seen /HPF (<20); Urine Bilirubin NEGATIVE (Negative); Urine Blood Negative (Negative); Urine Clarity Turbid (Clear); Urine Color Light-Yellow (Yellow); Urine Culture Reflex Order NOT NEEDED; Urine Glucose NEGATIVE (Negative); Urine Ketones NEGATIVE (Negative); Urine Micro Reflex YN NO BILL MICROSCOPIC; Urine Mucus Slight /HPF (None Seen); Urine Nitrite NEGATIVE (Negative); Urine Protein NEGATIVE (Negative); Urine RBC <5 /HPF (None Seen); Urine Urobilinogen Normal (Normal); Urine WBC <5 /HPF (<5); Urine pH 7.5 (5.0-7.0)
--- NOTE | 2024-03-18 15:46 | ER ---
Nurse's Notes [facility] Name: Ni Obrien Age: 33 yrs Sex: Female : 1990 Arrival Date: 03/18/2024 Time: 13:36 Bed 9 Private MD: Diagnosis: Other pneumonia, unspecified organism Presentation: 03/18 13:58 Chief complaint: Patient states: COLD/FLU S/S x2 DAYS. Coronavirus screen: congestion, bp cough unrelated to allergies, sore throat. Ebola Screen: No symptoms or risks identified at this time. Resp Distress? No respiratory distress is noted at this time. Initial Sepsis Screen: Does the patient meet any 2 criteria? No. Patient's initial sepsis screen is negative. Does the patient have a suspected source of infection? No. Patient's initial sepsis screen is negative. Risk Assessment: Do you want to hurt yourself or someone else? Patient reports no desire to harm self or others. Onset of symptoms is unknown. 13:58 Method Of Arrival: Ambulatory bp 13:58 Acuity: LATRICE 3 bp Triage Assessment: 13:59 General: Appears in no apparent distress. Behavior is appropriate for age. Pain: bp Complains of pain in neck. Respiratory: Breath sounds are clear bilaterally. 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 - Infectious Disease History:: Denies. - Social history:: Smoking status: Patient denies any tobacco usage or history of. Screenin:41 [facility] ED Fall Risk Assessment (Adult) History of falling in the last 3 months, cm10 including since admission No falls in past 3 months (0 pts) Confusion or Disorientation No (0 pts) Intoxicated or Sedated No (0 pts) Impaired Gait No (0 pts) Mobility Assist Device Used No (0 pt) Altered Elimination No (0 pt) Score/Fall Risk Level 0 - 2 = Low Risk Oriented to surroundings, Maintained a safe environment, Hourly rounding (assess needs \T\ fall precautionary measures) done. Abuse screen: Denies threats or abuse. Denies injuries from another. Nutritional screening: No deficits noted. Tuberculosis screening: No symptoms or risk factors identified. Assessment: 14:40 General: Appears in no apparent distress. comfortable, Behavior is calm, cooperative. cm10 Neuro: No deficits noted. Level of Consciousness is awake, alert, obeys commands. Respiratory: No deficits noted. Reports cough that is Airway is patent Respiratory effort is even, unlabored, Respiratory pattern is regular, symmetrical, Breath sounds are clear bilaterally. Derm: No deficits noted. Skin is intact, Skin is pink, warm \T\ dry. Musculoskeletal: No deficits noted. Range of motion: intact in all extremities. 14:41 Cardiovascular: Heart tones present Patient's skin is warm and dry. cm10 Vital Signs: 13:58 BP 144 / 92; Pulse 116; Resp 20; Temp 98; Pulse Ox 97% ; Weight 72.57 kg; Height 5 ft. bp 7 in. ; 13:58 Body Mass Index 25.06 (72.57 kg, 170.18 cm) bp ED Course: 13:39 Patient arrived in ED. mr 13:41 Robert Velarde PA is PHCP. cp 13:41 Franky Almonte MD is Attending Physician. cp 13:59 Triage completed. bp 13:59 Arm band placed on. bp 14:12 Chest Pa And Lat (2 Views) XRAY In Process Unspecified. EDMS 14:13 Strep Sent. cm10 14:13 Flu Sent. cm10 14:13 SARS RAPID Sent. cm10 14:13 COVID swab sent to lab. Flu and/or RSV swab sent to lab. Strep swab sent to lab. cm10 14:20 Cheyenne Elam, RN is Primary Nurse. cm10 14:42 Patient has correct armband on for positive identification. Bed in low position. Call cm10 light in reach. 16:07 Provided Education on: Follow-up instructions. cm10 16:07 No provider procedures requiring assistance completed. Patient did not have IV access cm10 during this emergency room visit. Administered Medications: No medications were administered Medication: 14:41 VIS not applicable for this client. cm10 Outcome: 15:45 Discharge ordered by . cp 16:06 Discharged to home ambulatory, cm10 16:06 Condition: good 16:06 Discharge instructions given to patient, Instructed on discharge instructions, follow up and referral plans. medication usage, Demonstrated understanding of instructions, follow-up care, medications, Prescriptions given X 4, 16:07 Patient left the ED. cm10 Signatures: Dispatcher [employer] EDMS Myriam Chery, Reg Reg mr Robert Velarde PA PA cp Peltier, Brian, RN RN Cheyenne Ding RN RN cm10 Corrections: (The following items were deleted from the chart) : 14:13 General: Appears in no apparent distress. Behavior is appropriate for age, cm10 cm10 14: 14:13 Pain: Complains of pain in neck cm10 cm10 14: 14:13 Neuro: Level of Consciousness is awake, alert, obeys commands, Oriented to cm10 Appropriate for age cm10 14: 14:13 Cardiovascular: Patient's skin is warm and dry. cm10 cm10 14:41 14:13 Respiratory: Airway is patent Respiratory effort is even, unlabored, cm10 cm10
--- NOTE | 2024-03-18 15:46 | EDPHYS ---
Physician Documentation [facility] Name: Ni Obrien Age: 33 yrs Sex: Female : 1990 Arrival Date: 03/18/2024 Time: 13:36 Bed 9 Private MD: ED Physician Franky Almonte HPI: 03/18 14:05 This 33 yrs old Female presents to ER via Ambulatory with complaints of Cough, cp Congestion. 14:05 The patient or guardian reports cough, that is intermittent, congestion. Onset: The cp symptoms/episode began/occurred 2 day(s) ago. 14:05 Associated signs and symptoms: Pertinent positives: sore throat, Pertinent negatives: cp diarrhea, fever, vomiting. 14:05 Severity of symptoms: in the emergency department the symptoms are unchanged, despite cp home interventions. 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 - Infectious Disease History:: Denies. - Social history:: Smoking status: Patient denies any tobacco usage or history of. ROS: 14:10 Constitutional: Negative for body aches, chills, fever, poor PO intake, cp 14:10 Eyes: Negative for injury, pain, redness, and discharge, cp 14:10 ENT: Negative for drainage from ear(s), ear pain, sore throat, difficulty swallowing, difficulty handling secretions, 14:10 Cardiovascular: Negative for chest pain, edema, palpitations, 14:10 Respiratory: Positive for cough, "sounds productive", Negative for shortness of breath, wheezing, 14:10 Abdomen/GI: Negative for abdominal pain, vomiting, diarrhea, constipation, 14:10 Back: Negative for pain at rest, pain with movement, 14:10 Neuro: Negative for altered mental status, dizziness, headache, weakness, 14:10 All other systems are negative, Exam: 14:15 Constitutional: The patient appears in no acute distress, alert, awake, cp non-diaphoretic, non-toxic, well developed, well nourished, 14:15 Head/Face: Normocephalic, atraumatic. cp 14:15 Eyes: Periorbital structures: appear normal, Conjunctiva: normal, no exudate, no injection, Sclera: no appreciated abnormality, Lids and lashes: appear normal, bilaterally, 14:15 ENT: External ear(s): are unremarkable, Ear canal(s): are normal, clear, TM's: cp dullness, bilaterally, Nose: is normal, Mouth: Lips: moist, Oral mucosa: pink and intact, moist, Posterior pharynx: Airway: no evidence of obstruction, patent, 14:15 Neck: ROM/movement: is normal, is supple, without pain, no range of motions limitations, 14:15 Chest/axilla: Inspection: normal, 14:15 Cardiovascular: Rate: tachycardic, Rhythm: regular, Edema: is not appreciated, JVD: is not appreciated, 14:15 Respiratory: the patient does not display signs of respiratory distress, Respirations: labored breathing, is not present, intercostal retractions, are absent, shallow respirations, are not present, Breath sounds: bronchial sounds, that are mild, are heard diffusely, stridor, is not appreciated, wheezing: is not appreciated, 14:15 Abdomen/GI: Inspection: abdomen appears normal, Palpation: abdomen is soft and non-tender, in all quadrants, 14:15 Neuro: Orientation: to person, place \\T\\ time. Mentation: is normal, Vital Signs: 13:58 BP 144 / 92; Pulse 116; Resp 20; Temp 98; Pulse Ox 97% ; Weight 72.57 kg; Height 5 ft. bp 7 in. ; 13:58 Body Mass Index 25.06 (72.57 kg, 170.18 cm) bp MDM: 13:50 Patient medically screened. cp 15:00 Differential Diagnosis: Bronchitis Influenza Pneumonia Other sepsis. cp 15:45 Data reviewed: vital signs, nurses notes, lab test result(s), radiologic studies, plain cp films, and as a result, I will discharge patient. 15:45 Counseling: I had a detailed discussion with the patient and/or guardian regarding the cp historical points, exam findings, and any diagnostic results supporting the discharge/admit diagnosis, lab results, radiology results, the need for outpatient follow up, a family practitioner, to return to the emergency department if symptoms worsen or persist or if there are any questions or concerns that arise at home. 03/18 14:02 Order name: SARS RAPID; Complete Time: 15:33 bp 03/18 14:02 Order name: Flu; Complete Time: 15:33 bp 03/18 14:02 Order name: Strep bp 03/18 14:44 Order name: Throat Culture EDMS 03/18 14:49 Order name: Urinalysis W/Microscopic; Complete Time: 15:33 cp 03/18 15:34 Interpretation: Normal except: [facility] Turbid; UPH 7.5. cp 03/18 14:49 Order name: Test, Urine; Complete Time: 15:33 cp 03/18 14:02 Order name: Chest Pa And Lat (2 Views) XRAY; Complete Time: 15:33 bp Administered Medications: No medications were administered Disposition Summary: 03/18/24 15:45 Discharge Ordered Notes: Location: Home cp Problem: new cp Symptoms: have improved cp Condition: Stable cp Diagnosis - Other pneumonia, unspecified organism cp Followup: cp - With: Private Physician - When: 2 - 3 days - Reason: Recheck today's complaints Discharge Instructions: - Discharge Summary Sheet cp - Community-Acquired Pneumonia, Adult cp - How to Use a Nebulizer, Adult cp Forms: - Medication Reconciliation Form cp - Antibiotic Education cp - Prescription Opioid Use cp - Patient Portal Instructions cp - Leadership Thank You Letter cp Prescriptions: - Bromfed DM 2-30-10 mg/5 mL Oral syrup - administer 10 milliliter ORAL route every 6 hours as needed for cold symptoms; cp 240 milliliter; Refills: 0, Product Selection Permitted - Augmentin 875-125 mg Oral Tablet - take 1 tablet ORAL route every 12 hours for 10 days; 20 tablet; Refills: 0, cp Product Selection Permitted - Albuterol Sulfate 2.5 mg /3 mL (0.083 %) Inhalation Solution for Nebulization - inhale 1 unit NEBULIZATION route every 8 hours As needed; 1 unit; Refills: 0, cp Product Selection Permitted - Zithromax Z-Freedom 250 mg Oral Tablet - take 1 tablet ORAL route as directed for 5 days Day 1 - take two (2) tablets cp one time. Day 2, 3, 4 , 5 take one (1) tablet once daily.; 6 tablet; Refills: 0, Product Selection Permitted Signatures: Dispatcher [employer] EDGA Robert Velarde PA PA cp Bill Shea, RN RN bp Corrections: (The following items were deleted from the chart) 14: 14:02 SARS-COV-2 Antigen Rapid+I.LAB.BRZ ordered. EDMS EDMS 14: 14:02 Influenza Screen (A \\T\\ B)+BA.LAB.BRZ ordered. EDMS EDMS 14: 14:02 Group A Streptococcus Rapid Sc+BA.LAB.BRZ ordered. EDMS EDMS
[2024-03-18 16:30] VITALS: BP 144/92; TEMP 98; O2SAT 97
== END 2024-03-18 16:07 | disposition home or self-care (01) ==
LOC: ER 13:36
DX: J18.8 Other pneumonia, unspecified organism (principal); Z11.52 Encounter for screening for COVID-19
CPT/HCPCS: 36415; 71046; 81001; 81025; 87070; 87081; 87804; 87811; 99283

== ENCOUNTER 2025-01-26 00:14 | Emergency (ER) | payer OTHER ==
[2025-01-26] MEDS ORDERED: HYDROCODONE/APAP 7.5/325 MG TAB ONE (00:42)
[2025-01-26] MEDS ORDERED: IBUPROFEN 400 MG TAB ONE (00:42)
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
[2025-01-26 02:33] VITALS: BP 128/88; TEMP 98.6; O2SAT 97
--- NOTE | 2025-01-26 05:48 | RAD REPORT ---
EXAM: XR Right Shoulder Complete, 2 or More Views CLINICAL HISTORY: The patient is 34 years old and is Female; PAIN TECHNIQUE: Two or more views of the right shoulder. COMPARISON: No relevant prior studies available. FINDINGS: BONES/JOINTS: Widening of the acromioclavicular and coracoclavicular joint space is noted. The gl enohumeral joint is intact. No acute fracture. No dislocation. SOFT TISSUES: Unremarkable. IMPRESSION: Findings suggest AC separation. Electronically signed by: Sharlene Lomeli MD 01/26/2025 01:35 AM CDT RP Due to temporary technical issues with the PACS/[employer] reporting system, reports are being shree d by the in-house radiologist without review as a courtesy to ensure prompt reporting the interpreting radiologist is fully responsible for the content of the report. Transcribed Date/Time: 01/26/2025 5:48 AM
== END 2025-01-26 02:00 | disposition home or self-care (01) ==
LOC: ER 00:14
DX: S43.101A Unspecified dislocation of right acromioclavicular joint, initial encounter (principal); F17.210 Nicotine dependence, cigarettes, uncomplicated
CPT/HCPCS: 99283